=== PATIENT | male | born 1985 | race Caucasian/White ===

== ENCOUNTER 2017-06-09 09:14 | Emergency (ER) | payer OTHER ==
[2017-06-09] MEDS: NS 0.9% 1000 ML* 2,000 ML IV ONE (09:42)
--- NOTE | 2017-06-09 09:43 | ED ---
Lower Extremity - HPI Summary HPI Summary: 32M presents with bilateral cramps today. 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 He has history of sweating that is unchanged. He states he's had this before but has been in the summer when was dehydrated. He denies any injury. Denies any surgery. He denies any recent immobilization. He denies any recent illness. He denies any fevers. He denies any chest pain or shortness of breath. He states the cramps are over his whole body but is worse in his legs. Nothing makes it better or worse. He wonders if he is dehydrated. He states only drinks a little on weekends. only uses prescribed benzos. no recent cold exposure. - History of Current Complaint Chief Complaint: EDGeneral Stated Complaint: DEHYDRATION,CRAMPS,LIGHTHEADED Time Seen by Provider: 06/09/17 09:21 Pain Intensity: 5 - Allergies/Home Medications Allergies/Adverse Reactions: Allergies Allergy/AdvReac Type Severity Reaction Status Date / Time No Known Allergies Allergy Verified 09/15/12 10:32 PMH/Surg Hx/FS Hx/Imm Hx Endocrine/Hematology History: Denies: Hx Anticoagulant Therapy, Hx Diabetes Cardiovascular History: Reports: Hx Hypertension Musculoskeletal History: Reports: Hx Arthritis, Hx Congenital Bone Abnormalities , Hx Osteoporosis, Other Musculoskeletal History - Bone spurs knees - Surgical History Surgery Procedure, Year, and Place: left knee meniscus repair x 2 2003, 2010. right knee meniscus repair x 2 2001, 2007. Left hip pin, 1994 Hx Anesthesia Reactions: No Infectious Disease History: No Infectious Disease History: Denies: Traveled Outside the [place] in Last 30 Days - Family History Known Family History: Positive: Diabetes - Social History Alcohol Use: None Substance Use Type: Reports: None Smoking Status (MU): Current Every Day Smoker Review of Systems Positive: Skin Diaphoresis. Negative: Fever Negative: Chest Pain Negative: Shortness Of Breath Positive: Other - body cramps All Other Systems Reviewed And Are Negative: Yes Physical Exam Triage Information Reviewed: Yes Vital Signs On Initial Exam: Initial Vitals Temp Pulse Resp BP Pulse Ox 97.5 F 89 20 132/67 98 06/09/17 09:17 06/09/17 09:17 06/09/17 09:17 06/09/17 09:17 06/09/17 09:17 Vital Signs Reviewed: Yes Appearance: Positive: Pain Distress Skin: Positive: Warm, Dry, Other - skin diaporhesis Head/Face: Positive: Normal Head/Face Inspection Eyes: Positive: Normal, Conjunctiva Clear Respiratory/Lung Sounds: Positive: Clear to Auscultation, Breath Sounds Present Cardiovascular: Positive: Normal, RRR Abdomen Description: Positive: Nontender, Soft Bowel Sounds: Positive: Present Musculoskeletal: Positive: Other - legs cramps,. Negative: Edema Left, Edema Right Neurological: Positive: Normal Psychiatric: Positive: Normal Diagnostics - Vital Signs Vital Signs Temp Pulse Resp BP Pulse Ox 06/09/17 09:32 84 13 98 06/09/17 09:17 97.5 F 89 20 132/67 98 - Laboratory Result Diagrams: 06/09/17 09:42 06/09/17 09:42 Lab Statement: Any lab studies that have been ordered have been reviewed, and results considered in the medical decision making process. Re-Evaluation - Re-Evaluation First Eval Re-Evaluation Time: 11:47 Change: Improved Comment: muscle cramps resolved after fluids and valium Lower Extremity Course/Dx - Course Course Of Treatment: 32M presents with bilateral cramps today. 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 He has history of sweating that is unchanged. He states he's had this before but has been in the summer when was dehydrated. He denies any injury. Denies any surgery. He denies any recent immobilization. He denies any recent illness. He denies any fevers. He denies any chest pain or shortness of breath. He states the cramps are over his whole body but is worse in his legs. Nothing makes it better or worse. He wonders if he is dehydrated. on exam has legs cramp, appears diaphoretic. labs CR elevated which is were has been. [place] low at 96. Ca high at 10.7. and mg low at 1.8. gave fluids and mag and patient feeling. will discharge with follow up for primary as Cr a little more elevated than normal. patient states has had worst episode than this before so told to keep a journal. patient understand and agrees with plan. - Diagnoses Differential Diagnosis/HQI/PQRI: Positive: Sprain, Strain, Other - muscle spasms Provider Diagnoses: Muscle cramps Discharge - Discharge Plan Condition: Good Disposition: HOME Patient Education Materials: Muscle Cramp (ED) Referrals: Warren Espinoza MD [Primary Care Provider] - Additional Instructions: Take ibuprofen every 6 hours as needed for pain Stay hydrated Take magnesium for next couple days Follow up with primary Return to ED if develop any new or worsening symptoms
[2017-06-09 09:51] LABS: Hematocrit 46 % (42-52); Mean Corpuscular HGB Conc 35 g/dl (31-36); Mean Corpuscular Hemoglobin 33 pg (27-31); Mean Corpuscular Volume 93 fL (80-94); Mean Platelet Volume 10 um3 (7.4-10.4); Platelet Count 221 10^3/ul (150-450); Red Blood Count 4.89 10^6/ul (4.0-5.4); Red Cell Distribution Width 13 % (10.5-15); White Blood Count 7.4 10^3/ul (3.5-10.8)
[2017-06-09 10:06] LABS: EGFR Non-African American 48.6 (>60)
[2017-06-09] MEDS ORDERED: Magnesium Chloride EC TAB* 64 MG PO ONE (10:27)
[2017-06-09] MEDS ORDERED: Thiamine IV* 100 MG, Folic Acid IV* 1 MG, Multiple Vitamin IV ADULT* 10 ML in NS 0.9% 1... IV ONE (10:32)
[2017-06-09] MEDS ORDERED: Magnesium Oxide TAB* 400 MG PO ONE (10:37)
[2017-06-09] MEDS ORDERED: Diazepam TAB(*) 5 MG PO ONE (10:42)
[2017-06-09 10:50] LABS: ABS Basophils 0.1 10^3/ul (0-0.2); ABS Eosinophils 0.1 10^3/ul (0-0.6); ABS Monocytes 0.5 10^3/ul (0-0.8); ABS Neutrophils 4.7 10^3/ul (1.5-7.7); ABS Nucleated RBC 0 10^3/ul; Eosinophil % 1.4 % (0-6); Lymphocyte % 27.1 % (25-47); Nucleated Red Blood Cells % 0.1
[2017-06-09 11:57] VITALS: BP 134/60
== END 2017-06-09 11:57 | disposition home or self-care (01) ==
LOC: ED 09:14
DX: R25.2 Cramp and spasm (principal); F17.200 Nicotine dependence, unspecified, uncomplicated
CPT/HCPCS: 36415; 80053; 82550; 83605; 83735; 84443; 85025; 86141; 87502; 96360; 99282; A9270-GY; J3411

== ENCOUNTER 2017-06-18 09:40 | Emergency (ER) | payer OTHER ==
[2017-06-18 09:48] VITALS: BP 135/82
--- NOTE | 2017-06-18 11:25 | RAD ---
Indication: Right shoulder pain. 4 views of the right shoulder demonstrates AC joint arthritis. There is no fracture or dislocation. No other bone or joint abnormality is noted. IMPRESSION: Mild AC joint arthritis without fracture.
[2017-06-18] MEDS ORDERED: Ketorolac INJ* 60 MG/2 ML VIAL IM ONE (11:55)
[2017-06-18] MEDS ORDERED: HYDROcodone/ACETAMIN 5-325 MG* 1 TAB PO ONE (12:54)
--- NOTE | 2017-06-18 16:50 | ED ---
Upper Extremity Pain - HPI Summary HPI Summary: Patient presents to the ED with chief complaint of right shoulder pain after falling and landing directly on it. He states he has an issue with his shoulder at baseline, but has never had a rotator cuff injury. He is unable to abduct the arm past 90. He has discrete pain at a 8 out of 10 directly located over the coracoclavicular joint. He is able to internally rotate his arm without pain. He denies any pain in the posterior shoulder or anterior shoulder. Pain is exacerbated by movement and relieved only somewhat with rest. He denies any numbness, tingling, color or temperature changes to the joint or to the ipsilateral arm. Pulses +2 and intact bilaterally. - History of Current Complaint Chief Complaint: EDExtremityUpper Stated Complaint: RT SHOULDER,FALL Time Seen by Provider: 06/18/17 12:25 Hx Obtained From: Patient Mechanism Of Injury: Blunt Trauma Onset/Duration: Started Hours Ago Timing: Constant Severity Initially: Moderate Severity Currently: Moderate Pain Location: Shoulder Character: Aching Aggravating Factor(s): Movement, Lifting, Flexion, Extension Alleviating Factor(s): Rest, Ice Associated Signs & Symptoms: Positive: Negative Related History: Dominant Hand Right - Risk Factors Non-Orthopedic Risk Factor: Negative DVT Risk Factors: Negative Septic Arthritis Risk Factor: Negative Compartment Syndrome Risk Factors: Pain - Allergies/Home Medications Allergies/Adverse Reactions: Allergies Allergy/AdvReac Type Severity Reaction Status Date / Time No Known Allergies Allergy Verified 09/15/12 10:32 PMH/Surg Hx/FS Hx/Imm Hx Previously Healthy: Yes Endocrine/Hematology History: Denies: Hx Anticoagulant Therapy, Hx Diabetes Cardiovascular History: Reports: Hx Hypertension Musculoskeletal History: Reports: Hx Arthritis, Hx Congenital Bone Abnormalities , Hx Osteoporosis, Other Musculoskeletal History - Bone spurs knees - Surgical History Surgery Procedure, Year, and Place: left knee meniscus repair x 2 2003, 2009. right knee meniscus repair x 2 2001, 2006. Left hip pin, 1994 Hx Anesthesia Reactions: No - Immunization History Hx Pertussis Vaccination: No Immunizations Up to Date: Unable to Obtain/Confirm Infectious Disease History: No Infectious Disease History: Denies: Traveled Outside the [place] in Last 30 Days - Family History Known Family History: Positive: Diabetes - Social History Occupation: Employed Full-time Lives: With Family Alcohol Use: None Hx Substance Use: No Substance Use Type: Reports: None Smoking Status (MU): Current Every Day Smoker Review of Systems Constitutional: Negative Negative: Fever, Chills, Skin Diaphoresis Eyes: Negative Cardiovascular: Negative Respiratory: Negative Negative: Abdominal Pain, Vomiting, Diarrhea Genitourinary: Negative Positive: no symptoms reported, see HPI Positive: Arthralgia, Myalgia Negative: Weakness, Paresthesia, Numbness, Syncope, Slurred Speech Psychological: Normal All Other Systems Reviewed And Are Negative: Yes Physical Exam Triage Information Reviewed: Yes Vital Signs On Initial Exam: Initial Vitals Temp Pulse Resp BP Pulse Ox 95.9 F 78 20 135/82 98 06/18/17 09:45 06/18/17 09:45 06/18/17 09:45 06/18/17 09:45 06/18/17 09:45 Vital Signs Reviewed: Yes Appearance: Positive: Well-Appearing, Well-Nourished Skin: Positive: Warm, Skin Color Reflects Adequate Perfusion Head/Face: Positive: Normal Head/Face Inspection Eyes: Positive: EOMI, DEANNE, Conjunctiva Clear Neck: Positive: Supple, No Lymphadenopathy Respiratory/Lung Sounds: Positive: Clear to Auscultation, Breath Sounds Present Cardiovascular: Positive: Normal, RRR, Pulses are Symmetrical in both Upper and Lower Extremities Musculoskeletal: Positive: Pain @ - Right shoulder over before meals joint Neurological: Positive: Facial Symmetry Psychiatric: Positive: Normal Diagnostics - Vital Signs Vital Signs Temp Pulse Resp BP Pulse Ox 06/18/17 12:50 98.4 F 77 16 135/82 100 06/18/17 09:45 95.9 F 78 20 135/82 98 - Laboratory Lab Statement: Any lab studies that have been ordered have been reviewed, and results considered in the medical decision making process. Course/Dx - Course Course Of Treatment: During the course of treatment, the patient is evaluated for right shoulder pain, versus rotatory cuff injury after falling directly onto the shoulder. X-ray obtained which does not show any acute injury. Before meals joint arthritis as shown but no evidence of before meals joint separation or other acute injury. I have offered a sling and encouraged him to use it, however he declines this and refuses several times. He declines pain medications, but changes his mind. He is given tramadol as a prescription and hydrocodone in the ED. He is okay for discharge at this time. - Diagnoses Provider Diagnoses: Shoulder pain Discharge - Discharge Plan Condition: Stable Disposition: HOME Prescriptions: traMADol TAB* [Ultram*] 50 mg PO Q8H PRN #12 tab MDD 3 PRN Reason: Pain Forms: *Work Release Referrals: Jayy Marti DO [Primary Care Provider] - Additional Instructions: Ice and heat intermittently to the area Continue with your diclofenac and gabapentin medications For any worsening symptoms, follow up with Dr. Prince
== END 2017-06-18 13:29 | disposition home or self-care (01) ==
LOC: ED 09:40
DX: M25.511 Pain in right shoulder (principal); M79.1 Myalgia; F17.210 Nicotine dependence, cigarettes, uncomplicated
CPT/HCPCS: 96372; 99282; J1885

== ENCOUNTER 2017-08-19 06:51 | Emergency (ER) | payer BC, OTHER ==
[2017-08-19 07:33] VITALS: BP 130/74
--- NOTE | 2017-08-19 07:33 | ED ---
Damien Tarango Angela, scribed for Sukhdeep Woodard MD on 08/19/17 at 0715 . Throat Pain/Nasal Congestion - HPI Summary HPI Summary: This pt is a 32 y/o male presenting to [facility] c/o right lower jaw pain since 04: 00 today s/p tooth extraction 6 days ago. Pt reports he went to [facility] 6 days ago, on 08/03/17, to get his molar extracted. He states he was given amoxicillin after his dental surgery. At approximately 04:00, pt began having right lower jaw pain. He works for [employer], and while lifting a box this morning he felt something come out from his surgical site, described as "gel." Pt tried calling [facility] with no response. Pt is a current smoker. PMHx includes HTN, osteoarthritis. - History of Current Complaint Chief Complaint: EDDentalPain Time Seen by Provider: 08/19/17 07:07 Hx Obtained From: Patient Onset/Duration: Lasting Days, Still Present Severity: Severe Associated Signs And Symptoms: Negative: Dysphagia, FB Sensation, Drooling, Wheezing, Hoarseness, Nasal Discharge Cough: None Related History: Other (Noted In Comments) - s/p tooth extraction on 08/13/17. - Allergies/Home Medications Allergies/Adverse Reactions: Allergies Allergy/AdvReac Type Severity Reaction Status Date / Time No Known Allergies Allergy Verified 09/15/12 10:32 PMH/Surg Hx/FS Hx/Imm Hx Endocrine/Hematology History: Denies: Hx Anticoagulant Therapy, Hx Diabetes Cardiovascular History: Reports: Hx Hypertension Musculoskeletal History: Reports: Hx Arthritis, Hx Congenital Bone Abnormalities , Hx Osteoporosis, Other Musculoskeletal History - Bone spurs knees - Surgical History Surgery Procedure, Year, and Place: left knee meniscus repair x 2 2003, 2010. right knee meniscus repair x 2 2001, 2006. Left hip pin, 1994 Hx Anesthesia Reactions: No Infectious Disease History: No Infectious Disease History: Denies: Traveled Outside the [place] in Last 30 Days - Family History Known Family History: Positive: Diabetes - Social History Alcohol Use: None Hx Substance Use: No Substance Use Type: Reports: None Smoking Status (MU): Current Every Day Smoker Review of Systems Negative: Fever, Chills ENT: Other - right lower jaw pain Cardiovascular: Negative Respiratory: Negative Gastrointestinal: Negative Genitourinary: Negative All Other Systems Reviewed And Are Negative: Yes Physical Exam - Summary Physical Exam Summary: Appearance: Well appearing, no pain distress Skin: warm, dry, reflects adequate perfusion Head/face: normal Eyes: EOMI, DEANNE ENT: first molar, right lower, with extraction site with clot and packing. Sutures are in place. Neck: supple, non-tender Respiratory: CTA, breath sounds present Cardiovascular: RRR, pulses symmetrical Abdomen: non-tender, soft Bowel: present Musculoskeletal: normal, strength/ROM intact Neuro: normal, sensory motor intact, A&Ox3 Triage Information Reviewed: Yes Vital Signs On Initial Exam: Initial Vitals Temp Pulse Resp BP Pulse Ox 97.6 F 84 18 135/80 96 08/19/17 06:53 08/19/17 06:53 08/19/17 06:53 08/19/17 06:53 08/19/17 06:53 Vital Signs Reviewed: Yes Procedures - Procedure Summary Procedure Summary: Dental block performed for pain control: An inferior alveolar nerve block was performed by intraoral approach on the right lower jaw. A total of 1.5 cc total mixed 1% lidocaine and 0.5% bupivacaine was injected. This provided adequate anesthesia. He tolerated this well without complications. The socket of the extraction of the right lower first molar was irrigated with saline through a 20-gauge angiocatheter. Food particles and a light rodney-brown discharge was irrigated out. It was irrigated clean. The socket was then packed with Surgicel. He tolerated this well without complaints. Diagnostics - Vital Signs Vital Signs Temp Pulse Resp BP Pulse Ox 08/19/17 06:53 97.6 F 84 18 135/80 96 - Laboratory Lab Statement: Any lab studies that have been ordered have been reviewed, and results considered in the medical decision making process. EENT Course/Dx - Course Course Of Treatment: Patient with dry socket after extraction of right lower first molar. Socket was irrigated out and packed with Surgicel after dental block. He is guarding on antibiotic. Chlorhexidine mouthwash and naproxen 500 mg was prescribed. He is encouraged to follow up with [facility]. - Diagnoses Provider Diagnoses: Alveolar osteitis Discharge - Sign-Out/Discharge Documenting (check all that apply): Discharge/Admit/Transfer - discharge home - Discharge Plan Condition: Good Disposition: HOME Prescriptions: Chlorhexidine MOUTHWASH 0.12%* [Peridex Mouth Wash 0.12%*] 15 ml MT BID #1 btl Naproxen [Naproxen 500 mg tab] 500 mg PO BID PRN #10 tablet.dr [id number] Reason: Pain Patient Education Materials: Dry Socket (ED) Forms: *Work Release Referrals: Jayy Marti DO [Primary Care Provider] - Additional Instructions: Call [facility] first thing this morning for an appt. Take your amoxicillin as prescribed. Return with fever, vomiting, swelling, worse or other concerns. - Billing Disposition and Condition Condition: GOOD Disposition: HOME The documentation as recorded by the Damien gordon Angela accurately reflects the service I personally performed and the decisions made by me, Sukhdeep Woodard MD.
== END 2017-08-19 07:32 | disposition home or self-care (01) ==
LOC: ED 06:51
DX: M27.3 Alveolitis of jaws (principal); I10 Essential (primary) hypertension; F17.200 Nicotine dependence, unspecified, uncomplicated
CPT/HCPCS: 99281

== ENCOUNTER 2017-09-09 08:02 | Emergency (ER) | payer BC ==
[2017-09-09] MEDS ORDERED: Thiamine IV* 100 MG, Folic Acid IV* 1 MG, Multiple Vitamin IV ADULT* 10 ML in NS 0.9% 1... IV ONE (08:21)
[2017-09-09 08:49] LABS: Hematocrit 44 % (42-52); Hemoglobin 15.9 g/dl (14.0-18.0); Mean Corpuscular HGB Conc 36 g/dl (31-36); Mean Corpuscular Hemoglobin 33 pg (27-31); Mean Corpuscular Volume 93 fL (80-94); Platelet Count 222 10^3/ul (150-450); Red Blood Count 4.79 10^6/ul (4.0-5.4); Red Cell Distribution Width 12 % (10.5-15); White Blood Count 7.6 10^3/ul (3.5-10.8)
[2017-09-09] MEDS ORDERED: NS 0.9% 1000 ML* 1,000 ML IV ONE (09:00)
[2017-09-09 09:05] LABS: EGFR Non-African American 34.1 (>60)
[2017-09-09 09:22] LABS: ABS Basophils 0 10^3/ul (0-0.2); ABS Eosinophils 0.1 10^3/ul (0-0.6); ABS Lymphocytes 1.4 10^3/ul (1.0-4.8); ABS Monocytes 0.6 10^3/ul (0-0.8); ABS Neutrophils 5.4 10^3/ul (1.5-7.7); ABS Nucleated RBC 0 10^3/ul; Eosinophil % 1.3 % (0-6); Nucleated Red Blood Cells % 0.2
[2017-09-09] MEDS ORDERED: Dextrose 50% Syringe 50 ML* 25 GM/50 ML SYRINGE IV PUSH ONE (09:28)
[2017-09-09] MEDS ORDERED: Dextrose 50% Syringe 50 ML* 25 GM/50 ML SYRINGE ONE (09:29)
--- NOTE | 2017-09-09 10:04 | ED ---
Complex/Multi-Sys Presentation - HPI Summary HPI Summary: 32 male presents with bilateral lower extremity muscle spasms. He states he has muscle spasms in his whole body but in his legs is worst. He states he has history such. He has history of dehydration and excess sweating. He denies any nausea vomiting. He denies any recent illness. He denies any chest pain shortness breath. No abdominal pain. He states he has history of low mg and Ca so he takes supplements. no history of low blood sugar or diabetes. He states started after he was lifting stuff at work. He drank two liters of fluids. He states normally gets IV fluids and it helps resolve symptoms. <Nelli Rodrigez - Last Filed: 09/09/17 11:21> <Kinjal Allen - Last Filed: 09/11/17 11:52> - History Of Current Complaint Chief Complaint: EDExtremityLower Time Seen by Provider: 09/09/17 08:21 - Allergies/Home Medications Allergies/Adverse Reactions: Allergies Allergy/AdvReac Type Severity Reaction Status Date / Time No Known Allergies Allergy Verified 09/09/17 08:11 Home Medications: Home Medications Diclofenac Sodium EC TAB* [Voltaren EC TAB*] 75 mg PO BID 09/09/17 [History Confirmed 09/09/17] Gabapentin CAP(*) [Neurontin 300 CAP(*)] 300 mg PO BID 09/09/17 [History Confirmed 09/09/17] Glycopyrrolate TAB(NF) [Robinul TAB(NF)] 2 mg PO BID 09/09/17 [History Confirmed 09/09/17] HYDROcodone/ACETAMIN 5-325 MG* [[place] 5-325 TAB*] 1 tab PO BID 09/09/17 [ History Confirmed 09/09/17] Lisinopril TAB* [Prinivil TAB*] 40 mg PO DAILY 09/09/17 [History Confirmed 09/09] PMH/Surg Hx/FS Hx/Imm Hx Endocrine/Hematology History: Denies: Hx Anticoagulant Therapy, Hx Diabetes Cardiovascular History: Reports: Hx Hypertension Musculoskeletal History: Reports: Hx Arthritis, Hx Congenital Bone Abnormalities , Hx Osteoporosis, Other Musculoskeletal History - Bone spurs knees - Surgical History Surgery Procedure, Year, and Place: left knee meniscus repair x 2 2003, 2009. right knee meniscus repair x 2 2001, 2006. Left hip pin, 1994 Hx Anesthesia Reactions: No - Immunization History Date of Tetanus Vaccine: within 10 years Infectious Disease History: No Infectious Disease History: Denies: Traveled Outside the [place] in Last 30 Days - Family History Known Family History: Positive: Diabetes - Social History Alcohol Use: Occasionally Hx Substance Use: No Substance Use Type: Reports: None Smoking Status (MU): Light Every Day Tobacco Smoker <Nelli Rodrigez - Last Filed: 09/09/17 11:21> Review of Systems Negative: Fever Negative: Chest Pain Negative: Shortness Of Breath Positive: Other - muscle spasms All Other Systems Reviewed And Are Negative: Yes <Nelli Rodrigez - Last Filed: 09/09/17 11:21> Physical Exam Triage Information Reviewed: Yes Vital Signs On Initial Exam: Initial Vitals Temp Pulse Resp BP Pulse Ox 97.2 F 90 20 113/60 100 09/09/17 08:06 09/09/17 08:06 09/09/17 08:06 09/09/17 08:06 09/09/17 08:06 Vital Signs Reviewed: Yes Appearance: Positive: Well-Appearing Skin: Positive: Warm, Dry Head/Face: Positive: Normal Head/Face Inspection Eyes: Positive: Normal, Conjunctiva Clear ENT: Positive: Pharynx normal Respiratory/Lung Sounds: Positive: Clear to Auscultation, Breath Sounds Present Cardiovascular: Positive: Normal, RRR Abdomen Description: Positive: Nontender, Soft Bowel Sounds: Positive: Present Musculoskeletal: Positive: Strength/ROM Intact - lower extremities, Other - muscles spams noted lower legs, good pulses Neurological: Positive: Normal Psychiatric: Positive: Normal <Nelli Rodrigez - Last Filed: 09/09/17 11:21> Vital Signs On Initial Exam: Initial Vitals Temp Pulse Resp BP Pulse Ox 97.2 F 90 20 113/60 100 09/09/17 08:06 09/09/17 08:06 09/09/17 08:06 09/09/17 08:06 09/09/17 08:06 <Kinjal Allen - Last Filed: 09/11/17 11:52> Diagnostics - Vital Signs Vital Signs Temp Pulse Resp BP Pulse Ox 09/09/17 09:51 65 18 121/60 96 09/09/17 09:21 72 19 109/56 96 09/09/17 09:00 77 15 97 09/09/17 08:57 77 15 101/57 96 09/09/17 08:21 80 116/64 97 09/09/17 08:06 97.2 F 90 20 113/60 100 - Laboratory Lab Results: Lab Results 09/09/17 09/09/17 Range/Units 08:29 08:29 WBC 7.6 (3.5-10.8) 10^3/ul RBC 4.79 (4.0-5.4) 10^6/ul Hgb 15.9 (14.0-18.0) g/dl Hct 44 (42-52) % MCV 93 (80-94) fL MCH 33 H (27-31) pg MCHC 36 (31-36) g/dl RDW 12 (10.5-15) % Plt Count 222 (150-450) 10^3/ul MPV 9.0 (7.4-10.4) um3 Neut % (Auto) 71.6 (38-83) % Lymph % (Auto) 19.0 L (25-47) % [place] % (Auto) 7.5 H (0-7) % Eos % (Auto) 1.3 (0-6) % Baso % (Auto) 0.6 (0-2) % Absolute Neuts (auto) 5.4 (1.5-7.7) 10^3/ul Absolute Lymphs (auto) 1.4 (1.0-4.8) 10^3/ul Absolute Monos (auto) 0.6 (0-0.8) 10^3/ul Absolute Eos (auto) 0.1 (0-0.6) 10^3/ul Absolute Basos (auto) 0 (0-0.2) 10^3/ul Absolute Nucleated RBC 0 10^3/ul Nucleated RBC % 0.2 Sodium 131 L (139-145) mmol/L Potassium 3.7 (3.5-5.0) mmol/L Chloride 92 L (101-111) mmol/L Carbon Dioxide 26 (22-32) mmol/L Anion Gap 13 H (2-11) mmol/L BUN 18 (6-24) mg/dL Creatinine 2.23 H (0.67-1.17) mg/dL Est GFR ( Amer) 43.9 (>60) Est GFR (Non-Af Amer) 34.1 (>60) BUN/Creatinine Ratio 8.1 (8-20) Glucose 36 L* (70-100) mg/dL Calcium 10.8 H (8.6-10.3) mg/dL Magnesium 2.8 H (1.9-2.7) mg/dL Total Bilirubin 0.90 (0.2-1.0) mg/dL AST 34 (13-39) U/L ALT 32 (7-52) U/L Alkaline Phosphatase 53 (34-104) U/L Total Creatine Kinase 252 H (10-223) U/L C-React Prot High Sens 2.61 mg/L Total Protein 8.4 (6.4-8.9) g/dL Albumin 5.3 H (3.2-5.2) g/dL Globulin 3.1 (2-4) g/dL Albumin/Globulin Ratio 1.7 (1-3) TSH 5.46 (0.34-5.60) mcIU/mL Result Diagrams: 09/09/17 08:29 09/09/17 08:29 Lab Statement: Any lab studies that have been ordered have been reviewed, and results considered in the medical decision making process. <Nelli Rodrigez - Last Filed: 09/09/17 11:21> - Vital Signs Vital Signs Temp Pulse Resp BP Pulse Ox 09/09/17 11:07 98.0 F 65 18 115/72 100 09/09/17 11:00 115/72 09/09/17 10:52 63 18 133/70 100 09/09/17 10:22 65 16 134/68 97 09/09/17 10:00 66 15 99 09/09/17 09:51 65 18 121/60 96 09/09/17 09:21 72 19 109/56 96 09/09/17 09:00 77 15 97 09/09/17 08:57 77 15 101/57 96 09/09/17 08:21 80 116/64 97 09/09/17 08:06 97.2 F 90 20 113/60 100 - Laboratory Lab Results: Lab Results 09/09/17 09/09/17 09/09/17 Range/Units 08:29 08:29 10:00 WBC 7.6 (3.5-10.8) 10^3/ul RBC 4.79 (4.0-5.4) 10^6/ul Hgb 15.9 (14.0-18.0) g/dl Hct 44 (42-52) % MCV 93 (80-94) fL MCH 33 H (27-31) pg MCHC 36 (31-36) g/dl RDW 12 (10.5-15) % Plt Count 222 (150-450) 10^3/ul MPV 9.0 (7.4-10.4) um3 Neut % (Auto) 71.6 (38-83) % Lymph % (Auto) 19.0 L (25-47) % [place] % (Auto) 7.5 H (0-7) % Eos % (Auto) 1.3 (0-6) % Baso % (Auto) 0.6 (0-2) % Absolute Neuts (auto) 5.4 (1.5-7.7) 10^3/ul Absolute Lymphs (auto) 1.4 (1.0-4.8) 10^3/ul Absolute Monos (auto) 0.6 (0-0.8) 10^3/ul Absolute Eos (auto) 0.1 (0-0.6) 10^3/ul Absolute Basos (auto) 0 (0-0.2) 10^3/ul Absolute Nucleated RBC 0 10^3/ul Nucleated RBC % 0.2 Sodium 131 L (139-145) mmol/L Potassium 3.7 (3.5-5.0) mmol/L Chloride 92 L (101-111) mmol/L Carbon Dioxide 26 (22-32) mmol/L Anion Gap 13 H (2-11) mmol/L BUN 18 (6-24) mg/dL Creatinine 2.23 H (0.67-1.17) mg/dL Est GFR ( Amer) 43.9 (>60) Est GFR (Non-Af Amer) 34.1 (>60) BUN/Creatinine Ratio 8.1 (8-20) Glucose 36 L* (70-100) mg/dL POC Glucose (mg/dL) 70 (70-100) mg/dL Calcium 10.8 H (8.6-10.3) mg/dL Magnesium 2.8 H (1.9-2.7) mg/dL Total Bilirubin 0.90 (0.2-1.0) mg/dL AST 34 (13-39) U/L ALT 32 (7-52) U/L Alkaline Phosphatase 53 (34-104) U/L Total Creatine Kinase 252 H (10-223) U/L C-React Prot High Sens 2.61 mg/L Total Protein 8.4 (6.4-8.9) g/dL Albumin 5.3 H (3.2-5.2) g/dL Globulin 3.1 (2-4) g/dL Albumin/Globulin Ratio 1.7 (1-3) TSH 5.46 (0.34-5.60) mcIU/mL Result Diagrams: 09/09/17 08:29 09/09/17 08:29 Lab Statement: Any lab studies that have been ordered have been reviewed, and results considered in the medical decision making process. <Kinjal Allen - Last Filed: 09/11/17 11:52> Re-Evaluation - Re-Evaluation First Eval Re-Evaluation Time: 10:43 Change: Improved Comment: feeling better after fluids Second Eval Re-Evaluation Time: 10:51 Comment: wants to go home, advised against such but patient is insistent <Nelli Rodrigez - Last Filed: 09/09/17 11:21> Complex Multi-Symp Course/Dx Course Of Treatment: 32 male presents with bilateral lower extremity muscle spasms. He states he has muscle spasms in his whole body but in his legs is worst. He states he has history such. He has history of dehydration and excess sweating. He denies any nausea vomiting. He denies any recent illness. He denies any chest pain shortness breath. No abdominal pain. He states he has history of low mg and Ca so he takes supplements. no history of low blood sugar or diabetes. He states started after he was lifting stuff at work. He drank two liters of fluids. He states normally gets IV fluids and it helps resolve symptoms. on exam has muscle spasms of lower legs. wbc normal. sodium 131. glucose so gave dextrose and repeat glucose 70. feeling better after fluids. Cr 2.23 advised that needs to be admitted and patient states has issues with kidneys and will not be admitted. <Nelli Rodrigez - Last Filed: 09/09/17 11:21> <Kinjal Allen - Last Filed: 09/11/17 11:52> - Diagnoses Provider Diagnoses: Hypoglycemia, Creatinine elevation, Muscle spasm Discharge - Sign-Out/Discharge Documenting (check all that apply): Discharge/Admit/Transfer - Billing Disposition and Condition Condition: STABLE Disposition: HOME <Nelli Rodrigez - Last Filed: 09/09/17 11:21> - Billing Disposition and Condition Condition: STABLE Disposition: HOME <Kinjal Allen - Last Filed: 09/11/17 11:52> - Discharge Plan Condition: Stable Disposition: HOME Patient Education Materials: Non-diabetic Hypoglycemia (ED) Referrals: Lamine Rao MD [Medical Doctor] - Jayy Marti DO [Primary Care Provider] - Additional Instructions: Follow up with endocrinology or primary about low blood sugar Eat small snacks throughout day Drink plenty of fluids Return to ED if develop any new or worsening symptoms Attestation Statement User Type: Provider - I was available for consult. This patient was seen by the [facility]. The patient was not presented to, seen by, or examined by me. -Harley <Kinjal Allen - Last Filed: 09/11/17 11:52>
[2017-09-09 11:03] VITALS: BP 115/72
== END 2017-09-09 11:07 | disposition home or self-care (01) ==
LOC: ED 08:02
DX: E16.2 Hypoglycemia, unspecified (principal); R79.89 Other specified abnormal findings of blood chemistry; M62.838 Other muscle spasm; I10 Essential (primary) hypertension; M19.90 Unspecified osteoarthritis, unspecified site; F17.200 Nicotine dependence, unspecified, uncomplicated
CPT/HCPCS: 36415; 80053; 82550; 83735; 84443; 85025; 86141; 96361; 96365; 96375; 99283; J3411

== ENCOUNTER 2017-12-01 07:23 | Emergency (ER) | payer BC ==
--- NOTE | 2017-12-01 08:02 | ED ---
Complex/Multi-Sys Presentation - HPI Summary HPI Summary: This is scribe Markie Hernandez documenting for Iain Kyle M.D. Patient is a 32 y/o M w/ c/o muscle cramping in left foot up to quads, back, and shoulders onsetting one hour ago. He specifically states he is experiencing cramps and not muscle spasms. Cramps are constant since onset. On triage, associated pain is 5/10 and nothing is noted to aggravate/alleviate Sx. Patient states he has Hx of these Sx since childhood. He states he has previously gone to Dr. Rao's office and was found not to be diabetic. He states he checks his blood glucose level himself and it is within normal range. 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 Patient started working at around 0200 today and states he was sweating a lot. He states he normally consumes magnesium, potassium, body armor drink, and a banana in the morning before work. However, he received short notice of his scheduling for work today and was not able to take these items. Before coming to ED he reports having a green electrolyte bag. He took two Valiums an hour ago as well. Sx relief from Valium is denied at present. Patient notes PSHx of left knee replacement in the room. He reports that he is on BP meds, 200 mg metoprolol and 30 mg lisinopril. In the room, vitals are pulse 93, 100 O2 sat, and BP 93/77. Patient claims he is normally 116 systolic. Home medications and allergies reviewed. I, Dr. Kyle, personally performed the services described in this documentation as scribed in my presence and it is both accurate and complete. - History Of Current Complaint Chief Complaint: EDGeneral Time Seen by Provider: 12/01/17 07:30 Hx Obtained From: Patient Onset/Duration: Sudden Onset, Lasting Hours - onset one hour ago, Still Present Timing: Constant, Days - onset one hour ago Severity Currently: Moderate - on triage, pain 5/10 Location: Pain At: - cramps at left foot to quads, back and shoulders Associated Signs And Symptoms: Positive: Diaphoresis - Allergies/Home Medications Allergies/Adverse Reactions: Allergies Allergy/AdvReac Type Severity Reaction Status Date / Time No Known Allergies Allergy Verified 12/01/17 07:32 Home Medications: Home Medications Diazepam TAB(*) [Valium TAB(*)] 10 mg PO Q8H PRN 12/01/17 [History Confirmed ] PMH/Surg Hx/FS Hx/Imm Hx Endocrine/Hematology History: Denies: Hx Anticoagulant Therapy, Hx Diabetes Cardiovascular History: Reports: Hx Hypertension Musculoskeletal History: Reports: Hx Arthritis, Hx Congenital Bone Abnormalities , Hx Osteoporosis, Other Musculoskeletal History - Bone spurs knees - Surgical History Surgery Procedure, Year, and Place: left knee meniscus repair x 2 2003, 2009. right knee meniscus repair x 2 2001, 2006. Left hip pin, 1994 Hx Anesthesia Reactions: No - Immunization History Date of Tetanus Vaccine: within 10 years Infectious Disease History: No Infectious Disease History: Denies: Traveled Outside the [place] in Last 30 Days - Family History Known Family History: Positive: Diabetes - Social History Alcohol Use: Occasionally Hx Substance Use: No Substance Use Type: Reports: None Smoking Status (MU): Light Every Day Tobacco Smoker Review of Systems Positive: Skin Diaphoresis Positive: Other - muscle cramps at left foot to quads, shoulders, and back All Other Systems Reviewed And Are Negative: Yes Physical Exam - Summary Physical Exam Summary: Appearance: The patient is well-nourished in no acute distress and in no acute pain. Skin: The skin is warm and dry and skin color reflects adequate perfusion. HEENT: The head is normocephalic and atraumatic. The pupils are equal and reactive. The conjunctivae are clear and without drainage. Nares are patent and without drainage. Mouth reveals moist mucous membranes and the throat is without erythema and exudate. The external ears are intact. The ear canals are patent and without drainage. The tympanic membranes are intact. Neck: The neck is supple with full range of motion and non-tender. There are no carotid bruits. There is no neck vein distension. Respiratory: Chest is non-tender. Lungs are clear to auscultation and breath sounds are symmetrical and equal. Cardiovascular: Heart is regular rate and rhythm. There is no murmur or rub auscultated. There is no peripheral edema and pulses are symmetrical and equal. Abdomen: The abdomen is soft and non-tender. There are normal bowel sounds heard in all four quadrants and there is no organomegaly palpated. Musculoskeletal: There is no back tenderness noted. Extremities are non-tender with full range of motion. There is good capillary refill. There is no peripheral edema or calf tenderness elicited. Neurological: Patient is alert and oriented to person, place and time. The patient has symmetrical motor strength in all four extremities. Cranial nerves are grossly intact. Deep tendon reflexes are symmetrical and equal in all four extremities. Psychiatric: The patient has an appropriate affect and does not exhibit any anxiety or depression. Triage Information Reviewed: Yes Vital Signs On Initial Exam: Initial Vitals Temp Pulse Resp BP Pulse Ox 97.7 F 98 20 89/55 99 12/01/17 07:25 12/01/17 07:25 12/01/17 07:25 12/01/17 07:25 12/01/17 07:25 Vital Signs Reviewed: Yes Diagnostics - Vital Signs Vital Signs Temp Pulse Resp BP Pulse Ox 12/01/17 07:25 97.7 F 98 20 89/55 99 - Laboratory Result Diagrams: 12/01/17 08:13 12/01/17 08:13 Lab Statement: Any lab studies that have been ordered have been reviewed, and results considered in the medical decision making process. Re-Evaluation - Re-Evaluation First Eval Re-Evaluation Time: 09:35 Change: Improved Comment: Patient reports feeling better. He will be discharged to home and follow up with PCP in 2-3 days. He is agreeable with this plan. Complex Multi-Symp Course/Dx Course Of Treatment: Mr. Catalan presented with the complaint that when he works in a heated environment he gets excessive sweating and ends up with muscle cramping. He states that he usually gets better with IV fluids. He was given IV fluids here and did improve and was noted that his electrolytes were within normal limits. - Diagnoses Provider Diagnoses: Dehydration Discharge - Sign-Out/Discharge Documenting (check all that apply): Patient Departure - discharge - Discharge Plan Condition: Stable Disposition: HOME Patient Education Materials: Dehydration (ED) Referrals: Jayy Marti DO [Primary Care Provider] - 2 Days Additional Instructions: Follow up with primary care physician in 2-3 days. Return to ED for any new or worsening symptoms. - Billing Disposition and Condition Condition: STABLE Disposition: Home
[2017-12-01] MEDS ORDERED: NS 0.9% 1000 ML* 1,000 ML IV ONE (08:07)
[2017-12-01 08:33] LABS: ABS Basophils 0 10^3/ul (0-0.2); ABS Eosinophils 0 10^3/ul (0-0.6); ABS Lymphocytes 1.4 10^3/ul (1.0-4.8); ABS Monocytes 0.8 10^3/ul (0-0.8); ABS Neutrophils 5.7 10^3/ul (1.5-7.7); ABS Nucleated RBC 0 10^3/ul; Eosinophil % 0.6 % (0-6); Hematocrit 42 % (42-52); Hemoglobin 15.1 g/dl (14.0-18.0); Lymphocyte % 17.3 % (25-47); Mean Corpuscular HGB Conc 36 g/dl (31-36); Mean Corpuscular Hemoglobin 34 pg (27-31); Mean Corpuscular Volume 93 fL (80-94); Mean Platelet Volume 9.3 um3 (7.4-10.4); Nucleated Red Blood Cells % 0; Platelet Count 184 10^3/ul (150-450); Red Cell Distribution Width 13 % (10.5-15)
[2017-12-01 08:44] LABS: EGFR Non-African American 42.3 (>60)
[2017-12-01 10:08] VITALS: BP 116/67
== END 2017-12-01 10:07 | disposition home or self-care (01) ==
LOC: ED 07:23
DX: E86.0 Dehydration (principal); R25.2 Cramp and spasm; R61 Generalized hyperhidrosis; F17.200 Nicotine dependence, unspecified, uncomplicated
CPT/HCPCS: 36415; 80053; 83735; 85025; 86703; 96360; 99283

== ENCOUNTER 2018-01-18 03:16 | Emergency (ER) | payer BC ==
[2018-01-18] MEDS ORDERED: Acetaminophen TAB* 325 MG PO ONE (06:29)
--- NOTE | 2018-01-18 06:39 | ED ---
Upper Extremity Pain - HPI Summary HPI Summary: [id number] patient presents with a left elbow injury which happened yesterday afternoon. Reports he was fell from a chair and landed on his left elbow onto a concrete floor. He has had pain, redness and swelling since. He has tried ice and ibuprofen with minimal relief. He denies numbness tingling or weakness but has pain with moving his forearm and elbow. Denies pain in his shoulder and neck and head. No other injuries as a result of this fall. - History of Current Complaint Chief Complaint: EDExtremityUpper Stated Complaint: LEFT ELBOW INJURY Time Seen by Provider: 01/18/18 05:54 Hx Obtained From: Patient - Allergies/Home Medications Allergies/Adverse Reactions: Allergies Allergy/AdvReac Type Severity Reaction Status Date / Time No Known Allergies Allergy Verified 12/01/17 07:32 PMH/Surg Hx/FS Hx/Imm Hx Endocrine/Hematology History: Denies: Hx Anticoagulant Therapy, Hx Diabetes Cardiovascular History: Reports: Hx Hypertension Musculoskeletal History: Reports: Hx Arthritis, Hx Congenital Bone Abnormalities , Hx Osteoporosis, Other Musculoskeletal History - Bone spurs knees - Surgical History Surgery Procedure, Year, and Place: left knee meniscus repair x 2 2003, 2009. right knee meniscus repair x 2 2001, 2006. Left hip pin, 1994 Hx Anesthesia Reactions: No - Immunization History Date of Tetanus Vaccine: within 10 years Infectious Disease History: No Infectious Disease History: Denies: Traveled Outside the [place] in Last 30 Days - Family History Known Family History: Positive: Diabetes - Social History Alcohol Use: Occasionally Hx Substance Use: No Substance Use Type: Reports: None Smoking Status (MU): Light Every Day Tobacco Smoker Physical Exam Vital Signs On Initial Exam: Initial Vitals Temp Pulse Resp BP Pulse Ox 98.6 F 98 15 132/69 95 01/18/18 03:17 01/18/18 03:17 01/18/18 03:17 01/18/18 03:17 01/18/18 03:17 Procedures - Splinting Left Upper Extremity Hand-Made Type: fiberglass Splint: posterior long arm Pre-Proc Neuro Vasc Exam: normal Post-Proc Neuro Vasc Exam: normal Diagnostics - Vital Signs Vital Signs Temp Pulse Resp BP Pulse Ox 01/18/18 03:17 98.6 F 98 15 132/69 95 - Laboratory Lab Statement: Any lab studies that have been ordered have been reviewed, and results considered in the medical decision making process. Course/Dx - Course Course Of Treatment: Lt elbow XR: no nga fx/dislocation however there appears to be a very small anterior fat pad sign - will tx as occult fx, splint and have f/u w/ ortho. - Diagnoses Provider Diagnoses: Left elbow fracture Discharge - Sign-Out/Discharge Documenting (check all that apply): Patient Departure - Discharge Plan Condition: Stable Disposition: HOME Prescriptions: HYDROcodone/ACETAMIN 5-325 MG* [[place] 5-325 TAB*] 1 tab PO Q6H PRN #12 tab MDD 4 PRN Reason: Pain Patient Education Materials: Elbow Fracture (ED), Splint Care (ED) Forms: *Work Release Referrals: Cornelio Prince MD [Medical Doctor] - Additional Instructions: You may have a fracture of your left elbow. Final XR read will be available later today. REST, ICE, ELEVATE AND KEEP SPLINT CLEAN, DRY AND IN PLACE UNTIL SEEN BY ORTHOPEDICS. Call orthopedics today to schedule follow-up You may take ibuprofen 800mg every 8 hours with food alternating with acetaminophen 975mg every 6 hours as needed for pain. STOP DICLOFENAC WHILE TAKING [id number] *If you develop numbness, tingling, weakness, swelling or skin discoloration, loosen YESENIA wrap and elevate arm for 20 minutes. If symptoms persist, return to ED - Billing Disposition and Condition Condition: STABLE Disposition: Home
[2018-01-18 07:11] VITALS: BP 102/66
--- NOTE | 2018-01-18 08:36 | RAD ---
HISTORY: trauma, pain COMPARISONS: None VIEWS: 3 , Frontal, lateral, and oblique views of the left elbow FINDINGS: BONE DENSITY: Normal. BONES: There is no displaced fracture. JOINTS: There is no arthropathy. There is a trace posterior supracondylar fat pad. ALIGNMENT: There is no dislocation. SOFT TISSUES: Unremarkable. OTHER FINDINGS: None. IMPRESSION: TRACE EFFUSION. WHILE THERE IS NO DISPLACED FRACTURE, AND THE SETTING OF TRAUMA, THE PRESENCE OF AN EFFUSION MAY INDICATE AN OCCULT FRACTURE. IF SYMPTOMS PERSIST, RECOMMEND REPEAT IMAGING R0
== END 2018-01-18 07:11 | disposition home or self-care (01) ==
LOC: ED 03:16
DX: S59.902A Unspecified injury of left elbow, initial encounter (principal); W07.XXXA Fall from chair, initial encounter; Y93.9 Activity, unspecified; Y92.9 Unspecified place or not applicable; F17.200 Nicotine dependence, unspecified, uncomplicated
CPT/HCPCS: 99282; A9270-GY

== ENCOUNTER 2018-01-20 10:00 | Inpatient (IN) | payer BC ==
--- OUTSIDE RECORDS SUMMARY | 2018-01-20 10:17 | XMS REPORT ---
:1985 External Reference #:[id number] Author Organization [facility] Address [address] [place] [address] [place] [address] Phone [phone] Care Team Providers Name Role Phone Jayy Marti D.O. Primary Care Physician Unavailable Payers Type Date Identification Numbers Payment Provider Subscriber Commercial Policy Number: [id number] [employer] Narciso Catalan PayID: [id number] [address] [address] [place] [address] Workers Compensation Onset: 2004 Policy Number: [employer] Narciso Catalan [id number] PayID: [id number] [address] [place] [address] Problems Date Description Provider Status Onset: 04/25/2016 Enthesopathy of knee Cornelio Prince M.D. Active Onset: 04/25/2016 Derangement of knee Cornelio Prince M.D. Active Onset: 01/18/2018 Cellulitis of forearm Vi Sarabia M.D. Active Onset: 05/23/2016 Arthroplasty of knee Cornelio Prince M.D. Active Family History Date Family Member(s) Problem(s) Comments General Diabetes mother General Hypertension mother/father General Heart Disease General Cancer Social History Type Date Description Comments Lives With Alone Occupation U[employer] ETOH Use 18 pack on weekends Smoking Patient is a current smoker, smokes every day Smoking Heavy tobacco smoker (more than 10 cigarettes/day) Exercise Type/Frequency Exercises regularly Allergies, Adverse Reactions, Alerts Date Description Reaction Status Severity Comments 06/06/2015 NKDA active Medications Medication Date Status Form Strength Qnty SIG Indications Ordering Provider Amoxicillin/C 01/18/ Active Tablets 875-125mg 14tabs 1 pill by L03.114 Vi sainz 2017 mouth twice Cornell, Potassium a day x 1 M.D. week Lisinopril 00/ Active Tablets 40mg 1 by mouth Unknown 0000 every day Omeprazole 00/00/ Active Capsules 40mg 1 by mouth Unknown 0000 DR every day Valium // Active Tablets 10mg 1 tabletprn Unknown 0000 Gabapentin / Active Capsules 300mg 1 by mouth Unknown 0000 three times a day Diclofenac / Active Tablets DR 75mg take 1 Unknown Sodium 0000 tablet twice a day with food Metoprolol / Active Tablets ER 200mg 1 by mouth Unknown Succinate ER 0000 24HR every day Ambien / Active Tablets 10mg take 1/2 to Unknown 0000 1 tablet by mouth nightly at bedime as needed maximum daily dose of 1 per day Hydrocodone / Active Unknown 0000 Mobic 04/25/ Hx Tablets 15mg 30tabs once daily M70.52 Cornelio 2017 - with food Niki, 05/21/ M.D. 2017 Opana ER 00/ Hx Tab ER 12H 30mg by mouth Unknown 0000 - Abuse-Det twice a day 2016 Celebrex / Hx Capsules 200mg 1 by mouth Unknown 0000 - every day 2017 Allopurinol 00/ Hx Tablets 300mg 1 by mouth Unknown 0000 - every day 2017 Toprol XL / Hx Tablets ER 200mg 1 by mouth Unknown 0000 - 24HR every day 2017 Hydrocodone-A 00/ Hx Tablets 5-325mg 1 by mouth Unknown cetaminophen 0000 - every 4-6 05/21/ hours prn. 2017 Seroquel / Hx Tablets 25mg 1 by mouth Unknown 0000 - every day 2017 Oxymorphone /00/ Hx Tablets 10mg 1 by mouth Unknown HCL 0000 - twice a day 2017 Zolpidem /00/ Hx Tablets 10mg 1/2 to 1 Unknown Tartrate 0000 - tab by 01/17/ mouth every 2017 night at bedtime as needed Robinul / Hx Tablets 1mg take 1 by Unknown 0000 - mouth or three 2018 times a day Oxybutynin 00/ Hx Tablets ER 5mg 1 by mouth Unknown Chloride ER 0000 - 24HR every day 2017 Medications Administered in Office Medication Date Status Form Strength Qnty SIG Indications Ordering Provider Depomedrol Administered Injection Dirk Lyubov, 40MG 010 M.D. Depomedrol Administered Injection Caballero, Lien, 40MG 010 PA Vital Signs Date Vital Result Comment 01/18/2018 Height 73 inches 6'1" Weight 281.00 lb Heart Rate 100 /min BP Systolic 126 mmHg BP Diastolic 60 mmHg BMI (Body Mass Index) 37.1 kg/m2 07/13/2017 Height 75 inches 6'3" Weight 290.00 lb Heart Rate 76 /min BP Systolic Recheck 130 mmHg BP Diastolic Recheck 84 mmHg Respiratory Rate 16 /min Body Temperature 97.7 F BMI (Body Mass Index) 36.2 kg/m2 09/17/2016 Height 75 inches 6'3" Weight 277.00 lb BP Systolic 130 mmHg BP Diastolic 80 mmHg Body Temperature 97.9 F Pain Level 0 BMI (Body Mass Index) 34.6 kg/m2 05/23/2016 Height 75 inches 6'3" Weight 290.00 lb Heart Rate 88 /min BP Systolic Recheck 126 mmHg BP Diastolic Recheck 84 mmHg Respiratory Rate 16 /min Body Temperature 98.3 F BMI (Body Mass Index) 36.2 kg/m2 04/25/2016 Height 75 inches 6'3" Weight 305.00 lb Heart Rate 80 /min BP Systolic Recheck 146 mmHg BP Diastolic Recheck 84 mmHg Respiratory Rate 16 /min Body Temperature 98.0 F BMI (Body Mass Index) 38.1 kg/m2 Results Description No Information Procedures Date CPT Code Description Status 04/25/2016 Inject/Drain Joint/Bursa Major W/O US Completed 05/26/2012 45520 Rad Exam; Hip Unilat Completed 05/26/2012 01885 Rad Exam; Pelvis Completed 01/28/2010 34187 Rad Exam; Both Knees, Standing Ap Completed 01/28/2010 Inject/Drain Joint/Bursa Major W/O US Completed 09/03/2009 55762 Rad Exam; Both Knees, Standing Ap Completed 09/03/200962412 Inject/Drain Joint/Bursa Major W/O US Completed Encounters Type Date Location Provider CPT E/M Dx Office Visit 01/18/2018 [facility] Vi Sarabia M.D. 93224 W19.xxxA 1:45p Of [facility] M25.522 L03.114 Office Visit 07/13/2017 9:45a [facility] Jayy Cast, 48034 M25.511 Of [facility] AT [facility] Office Visit 09/17/2016 10:00a [facility] Hillary Hickey, 23109 G56.32 Of [facility] Office Visit 05/23/2016 9:45a [facility] Cornelio Prince, 01263 M23.632 Of [facility] AT [facility] Z96.652 Office Visit 04/25/2016 9:00a [facility] Of Cornelio Prince, 87620 M70.52 [employer] AT [facility] M23.632 Z96.652 Office Visit 05/26/2012 8:00a [facility] Of Tuan Mcarthur M.D. 26786 716.95 C.M.A. 732.2 Office Visit 01/28/2010 2:45p [facility] Of Tuan Mcarthur M.D. 92007 716.96 C.M.A. Office Visit 09/03/2009 3:30p [facility] [place] [address] 716.96 C.M.A. Plan of Care Future Appointment(s):01/20/2018 9:00 am - Vi Sarabia M.D. at [facility] Brian01/26/2018 2:00 pm - Cornelio Prince M.D. at [facility] AT [facility]05/01/2018 - Vi Sarabia M.D.W19.xxxA Unspecified fall, initial cdelkmhhmM23.522 Pain in left euombZ82.114 Cellulitis of left upper limbNew Medication:Amoxicillin/Clavulanate Potassium 875-125 mgFollow up: Follow up: 01/20/18 am
[2018-01-20] MEDS ORDERED: Magnesium Hydroxide LIQ* 30 ML UDC PO PRN (10:23)
[2018-01-20] MEDS ORDERED: oxyCODONE/Acetamin 5/325 MG* TAB PO PRN (10:29)
[2018-01-20] MEDS ORDERED: Acetaminophen TAB* 325 MG PO PRN (10:29)
[2018-01-20] MEDS ORDERED: diPHENhydraMINE IV* 50 MG/ML 1 ml VIAL (BENADRYL) IV PRN (10:35)
[2018-01-20] MEDS ORDERED: Ondansetron INJ* 2 MG/ML VIAL IV PRN (10:35)
[2018-01-20] MEDS ORDERED: Docusate CAP* 100 MG PO PRN (10:35)
[2018-01-20] MEDS ORDERED: diPHENhydraMINE PO* 25 MG PO PRN (10:35)
[2018-01-20] MEDS ORDERED: Ondansetron TAB* 4 MG PO PRN (10:35)
[2018-01-20] MEDS ORDERED: Diazepam TAB(*) 10 MG PO PRN (10:38)
[2018-01-20] MEDS ORDERED: Zolpidem TAB* 10 MG PO PRN (10:44)
[2018-01-20] MEDS ORDERED: Morphine VIAL* 4 MG/ML VIAL (1 ml vial) IV ONE (10:48)
[2018-01-20 11:11] LABS: ABS Basophils 0 10^3/ul (0-0.2); ABS Eosinophils 0.1 10^3/ul (0-0.6); ABS Lymphocytes 1.1 10^3/ul (1.0-4.8); ABS Monocytes 0.6 10^3/ul (0-0.8); ABS Neutrophils 6.8 10^3/ul (1.5-7.7); ABS Nucleated RBC 0 10^3/ul; Eosinophil % 1.5 % (0-6); Hematocrit 35 % (42-52); Hemoglobin 12.1 g/dl (14.0-18.0); Lymphocyte % 12.3 % (25-47); Mean Corpuscular HGB Conc 35 g/dl (31-36); Mean Corpuscular Hemoglobin 33 pg (27-31); Mean Corpuscular Volume 94 fL (80-94); Mean Platelet Volume 9.6 um3 (7.4-10.4); Nucleated Red Blood Cells % 0; Platelet Count 125 10^3/ul (150-450); Red Blood Count 3.68 10^6/ul (4.00-5.40); Red Cell Distribution Width 12 % (10.5-15); White Blood Count 8.6 10^3/ul (3.5-10.8)
[2018-01-20 11:16] LABS: INR 1.06 (0.77-1.02)
[2018-01-20] MEDS: oxyCODONE/Acetamin 5/325 MG* TAB PO PRN ×3 (11:25→21:01)
[2018-01-20] MEDS ORDERED: Diazepam TAB(*) 5 MG PO PRN (12:00)
[2018-01-20] MEDS ORDERED: Vancomycin per Pharmacy* NOTE FOLLOW UP SCH (12:00)
[2018-01-20] MEDS ORDERED: Zosyn per Pharmacy* NOTE FOLLOW UP SCH (12:00)
[2018-01-20] MEDS ORDERED: Vancomycin(*) 2,000 MG in NS 0.9% 500 ML* 500 ML IVPB ONE (12:00)
[2018-01-20] MEDS ORDERED: ZOSYN 3.375 GM x ONE DOSE over 30 miuntes IVPB ×2 (12:00)
--- NOTE | 2018-01-20 13:55 | RAD ---
Indication: LEFT upper extremity cellulitis. Assess for deep soft tissue for joint infection. Comparison: January 18, 2018 radiographs. Technique: Noncontrast MRI LEFT elbow. Quill Contenta 1.5 Cheryl TM513B with GEM suite. Report: Normal articular alignment. Negative for joint effusion. Normal bone marrow signal throughout the [id number] without evidence for osteomyelitis. Extensive subcutaneous tissue plane edema with relative sparing at the volar radial aspect. Loculated fluid at the olecranon bursa measuring up to 4.1 cm transverse by 0.8 cm AP by 5.9 cm cephalocaudal. Given the clinical context infected bursitis should be considered. No additional loculated soft tissue plane fluid collection evident. Mild interstitial edema within the common flexor musculature extending from the medial epicondyle and up to 12 cm into the forearm concerning for myositis. No loculated fluid collection evident within the skeletal musculature. IMPRESSION: #. The constellation of findings is consistent with cellulitis and probable myositis at the common flexor musculature. #. Distended olecranon bursa concerning for infected bursitis. #. No additional loculated soft tissue plane fluid collection evident. #. No evidence for osteomyelitis or septic arthritis at the elbow.
[2018-01-20] MEDS: Morphine VIAL* 4 MG/ML VIAL (1 ml vial) IV PRN ×3 (14:27→22:15)
--- NOTE | 2018-01-20 14:46 | PN ---
Progress Note - Progress Note Date of Service: 01/20/18 Note: Pt was sent in as a direct admit from [facility] Orthopedics today by Dr. Sarabia, MRI was performed and reviewed. No need for washout at this time, no evidence of fluid collection or septic arthritis at the elbow. He will be kept on IV vancomycin and will continue to monitor progress. Blood cultures to be followed. Appreciate hospitalist and ID consultations.
--- NOTE | 2018-01-20 14:49 | CONS ---
CONSULTATION REPORT: DATE OF CONSULT: 01/20/18 REQUESTING PHYSICIAN: Dr. Saleh. CONSULTING SERVICE: Infectious Disease. REASON FOR CONSULT: Left arm infection. IMPRESSION: Recently fell of a stool, landed on his elbow, and x-ray initially showed no fracture but a small elbow effusion. Now, he has diffuse erythema, edema of the arm and pain with range of motion of the elbow in flexion, extension, pronation, and supination. Underlying septic elbow joint is a strong consideration. No bursitis evident. His left shoulder is nontender as is his wrist. Differentials would also include a soft tissue abscess. He had been on Augmentin as an outpatient with progression of his symptoms which may have been due to an undrained collection versus an uncovered organism, i.e., methicillin- resistant Staphylococcus aureus. RECOMMENDATION: Vancomycin goal trough 15 to 20. He is going to have an MRI today to evaluate the elbow joint if there is an effusion and he is being followed by Orthopedics for consideration of aspiration. HISTORY OF PRESENT ILLNESS: This 32-year-old man was healthy and then over the weekend fell of a stool, landed on his left elbow, seen in the emergency room. That day, an x-ray showed a small elbow effusion. He was put in a sling, followed up with Orthopedics, and had been on Augmentin for a day or two, but had progressive redness, swelling, pain with some fevers and chills at home and was sent from the orthopedics office today to the hospital for antibiotics and MRI study. He has pain with range of motion of the elbow, not of his shoulder or wrist. The redness and swelling is diffuse from mid upper arm to mid lower arm. It is pretty painful throughout. He has not had an infection requiring hospitalization in the past. PAST MEDICAL HISTORY: 1. Hypertension. 2. Status post left meniscus repair in 2003 and 2009. 3. Status post right meniscus repair in 2001 and 2006. 4. Status post left hip fixation, 1994. MEDICATIONS: 1. Tylenol. 2. Diazepam as needed. 3. Diclofenac twice a day. 4. Docusate. 5. Gabapentin. 6. Glycopyrrolate. 7. Lisinopril. 8. Morphine as needed. 9. Percocet as needed. 10. Zosyn 3.375 g every 8 hours. 11. Vancomycin. FAMILY HISTORY: Has no recurrent infections or tuberculosis. SOCIAL HISTORY: He works for [employer]. He lives in [place] with his father. He has no travel or sick contacts or injection drugs. REVIEW OF SYSTEMS: All negative to the 14-point review of systems except as noted above in the history of present illness. PHYSICAL EXAM: Vital Signs: Temperature is 37, heart rate is 82, respiratory rate 18, and oxygen saturation 98% on room air. General: He is awake, not in distress. Neurologic: He is oriented x3, follows all commands. Sensation is intact to light touch in both hands. HEENT: There is no conjunctival hemorrhage. Oropharynx without lesions. Neck is supple without mass. Heart: Regular rate and rhythm without murmurs, rubs, or gallops. Lungs are clear to auscultation bilaterally. Abdomen: Soft, nontender, and nondistended. There are bowel sounds present. Skin: There is diffuse erythema in his upper arm. No other rash or splinter hemorrhage. Musculoskeletal: There is no spine tenderness to palpation. There is no left shoulder or wrist tenderness to palpation. There is left elbow tenderness to palpation with diffuse edema, erythema, and warmth from the mid upper arm to the mid lower arm without crepitus or fluctuance. There is pain with flexion, extension, pronation, supination which is significant. LABORATORY DATA: White blood cell count 8, hemoglobin 12, platelets 125. Please see impressions and recommendations outlined above which was discussed with AVA David Thanks for asking me to see Mr. Catalan in consultation. [id number]/[facility] #: [id number] MTDElyssa
[2018-01-20] MEDS ORDERED: LORazepam TAB(*) 1 MG PO SCH (15:00)
--- NOTE | 2018-01-20 15:07 | RAD ---
INDICATION: Tobacco abuse. COMPARISON: Correlation is made with a prior study from November 07, 2008. TECHNIQUE: 2 portable films of the chest were obtained upright. FINDINGS: Cardiac and mediastinal contours appear to be within normal limits. The lungs are hyperinflated and clear. No pleural effusion is seen. IMPRESSION: HYPERINFLATION SUGGESTIVE OF CHRONIC PULMONARY DISEASE, NO EVIDENCE FOR ACUTE FINDING.
--- NOTE | 2018-01-20 15:37 | HP ---
ADMISSION HISTORY AND PHYSICAL: DATE OF ADMISSION: 01/20/18 CHIEF COMPLAINT: Left upper extremity cellulitis. ADMITTING DIAGNOSIS: Left upper extremity cellulitis. HISTORY OF PRESENT ILLNESS: Mr. Catalan is a 32-year-old gentleman, who now has 72 hours of increased pain, swelling, and erythema around the left upper extremity and elbow. His history is that on 01/17/18 he fell off a bar stool onto concrete. He had a small scratch on his left elbow. He went to [facility] Emergency Room and was told he had a possible nondisplaced fracture. He was initially placed in a splint and I first saw him on 01/18/18. I felt he had developing cellulitis with erythema and swelling. He had full range of motion of the elbow without an elbow effusion. I placed him on Augmentin and had him followup in 48 hours. Today, the patient is here for a recheck. His swelling and erythema have gotten worse. There are no palpable masses. He denies any fevers or chills. He denies any numbness. He denies IV drug abuse. PAST MEDICAL HISTORY: Hypertension, osteoarthritis, anxiety, gout, insomnia, morbid obesity, grief reaction, posttraumatic stress disorder, depression, anxiety, panic disorder, history of pneumonia. PAST SURGICAL HISTORY: Hip replacement, knee replacement. FAMILY HISTORY: Maternal diabetes and heart disease. Paternal hypertension and cancer. SOCIAL HISTORY: The patient lives alone. He works for [employer]. He smokes less than 1 pack of cigarettes per day, 18 alcoholic beverages per week. Normally very active, right-hand dominant. REVIEW OF SYSTEMS: Fourteen systems are reviewed with the patient today, positive for left elbow pain and swelling, left upper extremity swelling and redness, some night sweats, heart palpitations, PTSD, weight loss, seasonal allergies, anxiety. Otherwise, the patient reports review of systems is negative or not relevant. PHYSICAL EXAMINATION GENERAL: The patient is a well-nourished male, in no apparent distress. Alert and oriented x3. Pleasant mood and appropriate affect. Gait: The patient's gait is normal. He has abnormal arm swing and favors his left upper extremity. Coordination normal. VITAL SIGNS: Height is 6 feet 1 inch tall, weight of 281 pounds. Pulse of 92, temperature today 97.9. HEENT: Atraumatic, normocephalic. Pupils are equal and reactive to light. CHEST: Unlabored breathing. LUNGS: Clear to auscultation in all lung fernandez. No wheezes, rubs, or rhonchi. HEART: S1 and S2. ABDOMEN: Soft, nontender, nondistended. Bowel sounds in 4 quadrants. EXTREMITIES: Left upper extremity: The patient's skin has a small 2-mm opening along the olecranon bursa region. He demonstrates full extension of the elbow today to 110 degrees of flexion, but this does cause him some pain. No obvious effusion at the elbow, but he does have dense widespread swelling and erythema around the left upper extremity. This seems to be moving proximally and distally from his physical exam on Thursday. He has full motion of the thumb in all fingers, full sensation to light touch, and a 2+ palpable radial pulse. ASSESSMENT AND PLAN: Mr. Catalan is a 32-year-old gentleman with a fall 3 days ago and a small scrape on his arm. This has developed into a significant cellulitis that has not been helped by 48 hours of Augmentin. At this point, I am concerned about the increasing cellulitis. I am concerned about an elbow effusion or infection, although he does have good range of motion. I would like to direct admit this patient to [facility] and I will be the attending physician. I will plan to obtain lab work including CBC, ESR, and CRP. I would like blood cultures drawn. He will be placed on wide- spectrum antibiotics including vancomycin and most likely a second such as Zosyn. We will obtain an Infectious Disease consultation. I will have an MRI of the left upper extremity ordered to evaluate for elbow effusion or fluid collection. The patient will have p.r.n. analgesia. Based on his laboratory studies, we may consider a hospitalist consultation as well. The patient is headed currently for direct admission to [facility] and AVA David, will be writing the admission orders. [id number]/[facility] #: [id number] BELIA
[2018-01-20] MEDS: Metoprolol Succinate XL TAB* 100 MG PO SCH (16:15)
[2018-01-20] MEDS: oxyCODONE TAB* 5 MG TAB PO PRN (16:36)
[2018-01-20 17:12] LABS: ABS Basophils 0.1 10^3/ul (0-0.2); ABS Eosinophils 0.2 10^3/ul (0-0.6); ABS Lymphocytes 1.5 10^3/ul (1.0-4.8); ABS Monocytes 0.4 10^3/ul (0-0.8); ABS Neutrophils 6.6 10^3/ul (1.5-7.7); ABS Nucleated RBC 0 10^3/ul; Eosinophil % 2.6 % (0-6); Hematocrit 34 % (42-52); Hemoglobin 11.8 g/dl (14.0-18.0); Lymphocyte % 16.8 % (25-47); Mean Corpuscular HGB Conc 35 g/dl (31-36); Mean Corpuscular Hemoglobin 33 pg (27-31); Mean Corpuscular Volume 95 fL (80-94); Mean Platelet Volume 9.5 um3 (7.4-10.4); Nucleated Red Blood Cells % 0.1; Platelet Count 143 10^3/ul (150-450); Red Blood Count 3.56 10^6/ul (4.00-5.40); Red Cell Distribution Width 13 % (10.5-15); White Blood Count 8.7 10^3/ul (3.5-10.8)
[2018-01-20 17:22] LABS: INR 1.06 (0.77-1.02)
[2018-01-20 17:25] LABS: EGFR Non-African American 76.3 (>60)
[2018-01-20] MEDS ORDERED: Nicotine PATCH 21 MG/24 HR* PATCH ONE (17:30)
[2018-01-20] MEDS: Nicotine PATCH 21 MG/24 HR* PATCH TRANSDERM SCH (17:41)
[2018-01-20] MEDS: Heparin VIAL(*) 5000 UNITS/ML VIAL (FIVE THOUSAND) SUBCUT SCH (20:52)
[2018-01-20] MEDS: Nicotine Patch Removal NOTE FOLLOW UP SCH (20:52)
[2018-01-20] MEDS: Gabapentin CAP(*) 300 MG PO SCH (20:54)
[2018-01-20] MEDS ORDERED: Heparin VIAL(*) 5000 UNITS/ML VIAL (FIVE THOUSAND) SUBCUT SCH (21:00)
[2018-01-20] MEDS ORDERED: Diclofenac Sodium EC TAB* 25 MG PO SCH (21:00)
[2018-01-20] MEDS ORDERED: GLYCOPYRROLATE 1 MG PO SCH (21:00)
--- NOTE | 2018-01-20 21:12 | CONS ---
CC: Dr. Marti; Dr. Sarabia; Dr. Monk * CONSULTATION REPORT: DATE OF CONSULT: 01/20/18 PRIMARY CARE PROVIDER: Dr. Marti. ATTENDING PHYSICIAN WHILE IN THE HOSPITAL: Dr. Michael Thompson (report being dictated by Marbin Erazo NP). CHIEF COMPLAINT: Left arm pain, swelling, redness. HISTORY OF PRESENT ILLNESS: Mr. Catalan is a 32-year-old male patient. He carries a history of hypertension. He has a history of chronic pain. This weekend on Thursday, he was on a bar stool, he fell off the bar stool and landed on his left elbow. He woke up Thursday morning, he had a significant amount of pain and swelling in the left elbow. He went to the ER Thursday. They evaluated him. They were able to get him into Dr. Sarabia's office, who evaluated him and was concerned for cellulitis. He was started on Augmentin. He did note that there was redness near his elbow along the forearm. He denied having any fevers or chills. Denied having any chest pain or shortness of breath. He denied any nausea or vomiting. He said that he has been having some diarrhea since being put on the Augmentin, but he was concerned today, went back to Dr. Sarabia's office because the redness was getting worse. He was to be there for a routine followup and it was felt because it had progressed despite p.o. antibiotics that he would need IV antibiotics and was sent to the hospital. He was evaluated downstairs in the surgical stay unit. He denies any chest pain or shortness of breath. He denies having any vomiting. He denies any abdominal pain. He does state that he has some pain with flexion and extension, but he is able to flex and extend fully he says. He says he just feels tight. He denies any IV drug use, but because of his medical complexity, we were asked to evaluate in consult. PAST MEDICAL HISTORY: Significant for: 1. Hypertension. 2. Arthritis. 3. Chronic pain. PAST SURGICAL HISTORY: He has had a left total knee replacement and a left total hip replacement. He has had right knee arthroscopy. MEDICATIONS: Home meds according to his phone include: 1. Metoprolol XL 200 mg daily. 2. Lisinopril 40 mg daily. 3. [place] 1 tablet every 6 hours as needed. 4. Glycopyrrolate 2 mg p.o. b.i.d. 5. Gabapentin 300 mg p.o. b.i.d. 6. Voltaren 75 mg p.o. b.i.d. 7. Diazepam 10 mg every 8 hours as needed. ALLERGIES TO MEDICATIONS: Include no known drug allergies. FAMILY HISTORY: Mother had a history of arthritis. Father had a history of valvular heart disease. SOCIAL HISTORY: He is a pack-a-day smoker for about 15 years. He was not open to the nicotine replacement. He admits to drinking on Thursday-Thursday basis about every week. Surrogate decision makers are his parents. REVIEW OF SYSTEMS: There is no documented fever. He denied any chills. He denies having any double vision. There is no ear discharge. He denies having any rhinorrhea. There is no sore throat, no thyroid enlargement. Denied having any chest pain. There is no orthopnea. There is no nocturnal dyspnea. He denied having any abdominal pain. There was no nausea. There is no vomiting. There is no dysuria, no frequency. No seizure, no loss of consciousness. No pruritus. There is again erythema to the left elbow. Otherwise, review of 14 systems was completed, all others negative. PHYSICAL EXAM: Blood pressure 157/68, pulse 91, respirations are 18, O2 sat 100 %, temperature 97.5. General: At this time, Mr. Catalan is a 32-year-old male patient. He is sitting in the hospital bed. He does not appear to be in any acute distress. He is well nourished and well developed. HEENT: Head: Atraumatic and normocephalic. Eyes: EOMs are intact. Sclerae anicteric and not pale. Throat: Oral mucosa appears to be moist. No oropharyngeal erythema. Neck was supple. Heart: Sounds S1, S2. He had a regular rate and rhythm. No murmurs, rubs, or gallops. Lungs were clear to auscultation bilaterally. There were no wheezes, rales, or rhonchi. Abdomen was soft, flat, nontender. Bowel sounds are present. Extremities: Pulses were 2+ throughout. Distal CSM checks were intact to the left lower extremity. He does have flexion and extension to the elbow. There is some pain with this, but he does have full range of motion. He did have pronation and supination as well, again pain, but he has full range of motion noted in that left arm. He had 5/5 strength. Neurologically, he is awake, alert, and oriented x3. Skin: Grossly intact with exception he has an area of erythema basically extending from the mid forearm to the elbow and up into almost the axillary area, but it is warm to touch. There is an abrasion and small open area to his elbow. DIAGNOSTIC STUDIES/LAB DATA: Labs today reveal WBC of 8.6, RBC of 3.68, hemoglobin of 12.1, hematocrit of 35, and a platelet count of 125. ESR 90. INR was 1.06. The sodium was 137, potassium was 3.8, chloride of 105, bicarb 25 , BUN 18, creatinine of 1.14, glucose 145, calcium 9.1. Total bili 1.2, AST 17 , ALT 20, alk phos 39. CRP was 166. Albumin was 3.8. He had upper extremity MRI done today showing constellation of findings is consistent with cellulitis and probable myositis at the common flexor musculature, distended olecranon bursa concerning for infected bursitis. No additional loculated soft tissue plane fluid collection evident. No evidence for osteomyelitis or septic arthritis at the elbow. Old medical records were reviewed. ASSESSMENT AND PLAN: Mr. Catalan is a 32-year-old male patient presenting to Dr. Sarabia's office today for complaints of cellulitis and erythema to the left elbow that has gotten worse despite appropriate p.o. antibiotics. He was sent to the hospital for this. He will be admitted by Orthopedics. We were asked to evaluate in consult. My recommendations at this point are: 1. Left upper extremity cellulitis and left elbow bursitis. We will defer the management to Dr. Sarabia and her team, but the patient is on vancomycin. I would recommend getting blood cultures as well, which were sent and Dr. Monk has been consulted as well and will be evaluating the patient. 2. Hypertension. Continue meds as prescribed with exception of lisinopril. 3. Chronic pain. Continue meds as prescribed. 4. Question of alcoholism. Again, he does state that he drinks on Fridays and Saturdays and then it was reported that he may be drinking up to 18 to 20 beers a week, possibly more, so empirically I put him on the WAM protocol. 5. Tobacco abuse. I have offered smoking cessation and counseling. 6. DVT prophylaxis: We will defer to the primary team. 7. Code status: Full code. 8. Fluids, electrolytes, and nutrition: I would recommend a heart-healthy diet. TIME SPENT: Time spent on the consult was 60 minutes, greater than half the time was spent [id number] with the patient obtaining my history and physical, other half time was spent going over the plan of care with the patient and implementing plan of care. I did discuss the plan of care with my attending, Dr. Thompson; he is in agreement. MARBIN ERAZO, CHRISTIAN [id number]/[facility] #: [id number] MTDD
[2018-01-20] MEDS: Vancomycin(*) 1,500 MG in NS 0.9% 250 ML* 250 ML IVPB SCH (22:16)
[2018-01-21] MEDS: oxyCODONE TAB* 5 MG TAB PO PRN ×5 (00:10→22:42)
[2018-01-21] MEDS: Morphine VIAL* 4 MG/ML VIAL (1 ml vial) IV PRN ×4 (03:30→20:14)
[2018-01-21] MEDS: oxyCODONE/Acetamin 5/325 MG* TAB PO PRN ×3 (06:04→15:24)
[2018-01-21] MEDS: Vancomycin(*) 1,500 MG in NS 0.9% 250 ML* 250 ML IVPB SCH ×3 (06:05→21:44)
[2018-01-21 07:06] LABS: ABS Basophils 0 10^3/ul (0-0.2); ABS Eosinophils 0.2 10^3/ul (0-0.6); ABS Lymphocytes 1.4 10^3/ul (1.0-4.8); ABS Monocytes 0.5 10^3/ul (0-0.8); ABS Neutrophils 4.4 10^3/ul (1.5-7.7); ABS Nucleated RBC 0 10^3/ul; Eosinophil % 3.2 % (0-6); Hematocrit 32 % (42-52); Hemoglobin 11.2 g/dl (14.0-18.0); Lymphocyte % 21.7 % (25-47); Mean Corpuscular HGB Conc 35 g/dl (31-36); Mean Corpuscular Hemoglobin 33 pg (27-31); Mean Corpuscular Volume 94 fL (80-94); Mean Platelet Volume 8.9 um3 (7.4-10.4); Nucleated Red Blood Cells % 0.1; Platelet Count 161 10^3/ul (150-450); Red Blood Count 3.36 10^6/ul (4.00-5.40); Red Cell Distribution Width 12 % (10.5-15); White Blood Count 6.6 10^3/ul (3.5-10.8)
--- NOTE | 2018-01-21 08:19 | PN ---
Progress Note - Progress Note Date of Service: 01/21/18 SOAP: Subjective: 32 y.o male with fall and L upper extremity cellulitis. Currently on vanco for broad spectrum IV ABX. VSS, afebrile, labs WNLs. Patient eager for D/C , noticing improvement with redness. Objective: General- well appearing, NAD, resting in bed comfortably. MSK- erythema with mild induration noted over L forearm, upper arm, worse over elbow. 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 Assessment: 32 y.o male with fall and L upper extremity cellulitis. Vital Signs Temp 99.0 F 01/21/18 08:03 Pulse 84 01/21/18 08:03 Resp 18 01/21/18 08:54 BP 142/61 01/21/18 08:03 Pulse Ox 97 01/21/18 08:03 Intake & Output 01/20/18 01/21/18 01/21/18 18:59 06:59 18:59 Intake Total 964 875 310 Output Total 0 2725 775 Balance 964 -6160 -465 Weight 127.459 kg Intake: IVPB 530 275 295 ABX - VANCOMYCIN 530 275 295 Medicated IV 434 15 LR 434 15 Oral 0 600 Output: Urine 0 2725 775 Plan: - Blood cultures: Pending - Blood work: Stable - Consult for ID placed- continue vanco, will contact for possible D/C plan - no OR planned currently - JOHNNIE- cellulitis, no osteomyelitis, abscess noted. Acetaminophen (Tylenol Tab*) 650 mg PO Q4H PRN PRN Reason: FEVER/PAIN Diphenhydramine HCl (Benadryl Iv*) 25 mg IV Q6H PRN PRN Reason: itching Diphenhydramine HCl (Benadryl Po*) 25 mg PO Q6H PRN PRN Reason: itching Docusate Sodium (Colace Cap*) 100 mg PO BID PRN PRN Reason: CONSTIPATION Folic Acid (Folvite Tab*) 1 mg PO DAILY [facility] Last Admin: 01/21/18 08:45 Dose: 1 mg Gabapentin (Neurontin Cap(*)) 300 mg PO BID [facility] Last Admin: 01/21/18 08:45 Dose: 300 mg Heparin Sodium (Porcine) (Heparin Vial(*)) 5,000 units SUBCUT Q12HR [facility] Last Admin: 01/21/18 08:43 Dose: 5,000 units Vancomycin HCl 1,500 mg/ (Sodium Chloride) 250 mls @ 166.667 mls/hr IVPB Q8H [facility] Last Admin: 01/21/18 06:05 Dose: 166.667 mls/hr Lorazepam (Ativan Tab(*)) 0 - 6 mg PO .PER [facility] PROTOCOL [facility]; Protocol Magnesium Hydroxide (Milk Of Magnesia Liq*) 30 ml PO Q6H PRN PRN Reason: constipation Metoprolol Succinate (Toprol Xl Tab*) 200 mg PO DAILY@1600 [facility] Last Admin: 01/20/18 16:15 Dose: 200 mg Morphine Sulfate (Morphine Vial*) 2 mg IV Q2H PRN PRN Reason: PAIN - UNRELIEVED Last Admin: 01/21/18 06:42 Dose: 2 mg Multivitamins/Minerals (Theragran/Minerals Tab*) 1 tab PO DAILY [facility] Last Admin: 01/21/18 08:45 Dose: 1 tab Nicotine (Nicotine Patch 21 Mg/24 Hr*) 1 patch TRANSDERM DAILY [facility] Last Admin: 01/21/18 08:43 Dose: 1 patch Ondansetron HCl (Zofran Inj*) 4 mg IV Q6H PRN PRN Reason: nausea Ondansetron HCl (Zofran Tab*) 4 mg PO Q6H PRN PRN Reason: NAUSEA Oxycodone HCl (Roxycodone Tab*) 10 mg PO Q4H PRN PRN Reason: PAIN - BREAKTHROUGH Last Admin: 01/21/18 08:54 Dose: 10 mg Oxycodone/Acetaminophen (Percocet 5/325 Tab*) 2 tab PO Q4H PRN PRN Reason: PAIN - SEVERE Last Admin: 01/21/18 06:04 Dose: 2 tab Oxycodone/Acetaminophen (Percocet 5/325 Tab*) 1 tab PO Q4H PRN PRN Reason: PAIN - MODERATE Pharmacy Consult (Vancomycin Per Pharmacy*) 1 note FOLLOW UP .VANC PER PHARMACY [facility] Pharmacy Profile Note (Vancomycin Trough Check) 1 note FOLLOW UP .ENTER TIME ONE Stop: 01/21/18 13:31 Pharmacy Profile Note (Nicotine Patch Removal Note*) 1 note FOLLOW UP 2100 [facility] Last Admin: 01/20/18 20:52 Dose: 1 note Thiamine HCl (Vitamin B-1 Tab*) 100 mg PO DAILY [facility] Last Admin: 01/21/18 08:46 Dose: 100 mg
[2018-01-21] MEDS: Nicotine PATCH 21 MG/24 HR* PATCH TRANSDERM SCH (08:43)
[2018-01-21] MEDS: Heparin VIAL(*) 5000 UNITS/ML VIAL (FIVE THOUSAND) SUBCUT SCH ×2 (08:43→20:16)
[2018-01-21] MEDS: Folic Acid TAB* 1 MG PO SCH (08:45)
[2018-01-21] MEDS: Gabapentin CAP(*) 300 MG PO SCH ×2 (08:45→20:17)
[2018-01-21] MEDS: Multivitamins/Minerals TAB PO SCH (08:45)
[2018-01-21] MEDS: Thiamine TAB* 100 MG TAB PO SCH (08:46)
[2018-01-21] MEDS ORDERED: Metoprolol Succinate XL TAB* 100 MG PO SCH (09:00)
[2018-01-21] MEDS ORDERED: Lisinopril TAB* 10 MG PO SCH (09:00)
--- NOTE | 2018-01-21 11:01 | PN ---
Progress Note - Progress Note Date of Service: 01/21/18 SOAP: Subjective: CC: left arm infection HPI: 32 year old man with left arm redness, swelling, pain after a fall on his elbow. Today elbow ROM is improved and less painful, he still has pain medial elbow with some firmness in that area. A small pimple opened up over his lateral elbow. No fever, rash, or diarrhea. Objective: Vital Signs Temp 37.4 C 01/21/18 10:01 Pulse 89 01/21/18 10:01 Resp 18 01/21/18 10:48 BP 110/56 01/21/18 10:01 Pulse Ox 96 01/21/18 10:01 Intake & Output 01/20/18 01/21/18 01/21/18 18:59 06:59 18:59 Intake Total 964 875 310 Output Total 0 2725 775 Balance 964 -7820 -465 Weight 281 lb Intake: IVPB 530 275 295 ABX - VANCOMYCIN 530 275 295 Medicated IV 434 15 LR 434 15 Oral 0 600 Output: Urine 0 2725 775 Gen:awake, no distress HEENT: no thrush Heart:RRR no murmur Lungs:CTA BL Abd:+BS NTND soft Skin: no rash MSK: Left arm patchy blanching erythema and edema with some lymphangitic spread. Elbow flexion/extension decreased but improved. small amount serous drainage over olecranon Laboratory Results - last 24 hr 01/20/18 01/20/18 01/20/18 10:57 10:57 10:57 WBC 8.6 RBC 3.68 L Hgb 12.1 L Hct 35 L MCV 94 MCH 33 H MCHC 35 RDW 12 Plt Count 125 L MPV 9.6 Neut % (Auto) 79.2 Lymph % (Auto) 12.3 L Owsley % (Auto) 6.4 Eos % (Auto) 1.5 Baso % (Auto) 0.6 Absolute Neuts (auto) 6.8 Absolute Lymphs (auto) 1.1 Absolute Monos (auto) 0.6 Absolute Eos (auto) 0.1 Absolute Basos (auto) 0 Absolute Nucleated RBC 0 Nucleated RBC % 0 ESR 90 H INR (Anticoag Therapy) 1.06 H APTT Sodium 137 Potassium 3.8 Chloride 105 Carbon Dioxide 25 Anion Gap 7 BUN 18 Creatinine 1.14 Est GFR ( Amer) 89.5 Est GFR (Non-Af Amer) 74.0 BUN/Creatinine Ratio 15.8 Glucose 145 H Calcium 9.1 Total Bilirubin 1.20 H AST 17 ALT 20 Alkaline Phosphatase 39 C-Reactive Protein 166.41 H Total Protein 6.6 Albumin 3.8 Globulin 2.8 Albumin/Globulin Ratio 1.4 01/20/18 01/20/18 01/20/18 17:00 17:00 17:00 WBC 8.7 RBC 3.56 L Hgb 11.8 L Hct 34 L MCV 95 H MCH 33 H MCHC 35 RDW 13 Plt Count 143 L MPV 9.5 Neut % (Auto) 75.4 Lymph % (Auto) 16.8 L Owsley % (Auto) 4.6 Eos % (Auto) 2.6 Baso % (Auto) 0.6 Absolute Neuts (auto) 6.6 Absolute Lymphs (auto) 1.5 Absolute Monos (auto) 0.4 Absolute Eos (auto) 0.2 Absolute Basos (auto) 0.1 Absolute Nucleated RBC 0 Nucleated RBC % 0.1 ESR INR (Anticoag Therapy) 1.06 H APTT 28.4 Sodium Potassium Chloride Carbon Dioxide Anion Gap BUN 21 Creatinine 1.11 Est GFR ( Amer) 92.3 Est GFR (Non-Af Amer) 76.3 BUN/Creatinine Ratio Glucose Calcium Total Bilirubin AST ALT Alkaline Phosphatase C-Reactive Protein Total Protein Albumin Globulin Albumin/Globulin Ratio 01/21/18 01/21/18 07:00 07:00 WBC 6.6 RBC 3.36 L Hgb 11.2 L Hct 32 L MCV 94 MCH 33 H MCHC 35 RDW 12 Plt Count 161 MPV 8.9 Neut % (Auto) 66.6 Lymph % (Auto) 21.7 L Owsley % (Auto) 8.0 H Eos % (Auto) 3.2 Baso % (Auto) 0.5 Absolute Neuts (auto) 4.4 Absolute Lymphs (auto) 1.4 Absolute Monos (auto) 0.5 Absolute Eos (auto) 0.2 Absolute Basos (auto) 0 Absolute Nucleated RBC 0 Nucleated RBC % 0.1 ESR INR (Anticoag Therapy) APTT Sodium 135 Potassium 4.8 Chloride 102 Carbon Dioxide 26 Anion Gap 7 BUN 13 Creatinine 0.79 Est GFR ( Amer) 136.7 Est GFR (Non-Af Amer) 113.0 BUN/Creatinine Ratio 16.5 Glucose 104 H Calcium 8.8 Total Bilirubin AST ALT Alkaline Phosphatase C-Reactive Protein Total Protein Albumin Globulin Albumin/Globulin Ratio Assessment: 1. left arm cellulitis, infective myositis, olecranon bursitis 2. elevated CRP 3. tobacco abuse Plan: 1. continue vancomycin goal tr 15-20, swab sent of drainage ?communicating with olecranon bursa. He is agreeable to staying for more IV antibiotics. Recheck CRP 10/5 (ordered) Discussed with Stacey ESCALANTE 35 minutes floor time >50% face to face in counseling regarding continued antibiotic plans and follow up of his arm
[2018-01-21] MEDS ORDERED: Vancomycin Trough Check NOTE FOLLOW UP ONE (13:30)
--- NOTE | 2018-01-21 15:14 | PN ---
Subjective Date of Service: 01/21/18 Interval History: Patient feels as is if the pain in his arm is diminishing and the erythema is getting better. Patient states the pain is worst with movement and that he cannot straighten out his arm. Patient states the pain in worst over the medial epicondyle. Patient denies F/C, N/V, abdominal pain, dysuria, CP, SOB, tick bites, or other pain. Patient denies recent changes in his medications or diet. Patient had diarrhea associated with his augmentin which has resolved. Family History: Unchanged from Admission Social History: Unchanged from Admission Past Medical History: Unchanged from Admission Objective Active Medications: Acetaminophen (Tylenol Tab*) 650 mg PO Q4H PRN PRN Reason: FEVER/PAIN Diphenhydramine HCl (Benadryl Iv*) 25 mg IV Q6H PRN PRN Reason: itching Diphenhydramine HCl (Benadryl Po*) 25 mg PO Q6H PRN PRN Reason: itching Docusate Sodium (Colace Cap*) 100 mg PO BID PRN PRN Reason: CONSTIPATION Folic Acid (Folvite Tab*) 1 mg PO DAILY [facility] Last Admin: 01/21/18 08:45 Dose: 1 mg Gabapentin (Neurontin Cap(*)) 300 mg PO BID [facility] Last Admin: 01/21/18 08:45 Dose: 300 mg Heparin Sodium (Porcine) (Heparin Vial(*)) 5,000 units SUBCUT Q12HR [facility] Last Admin: 01/21/18 08:43 Dose: 5,000 units Vancomycin HCl 1,500 mg/ (Sodium Chloride) 250 mls @ 166.667 mls/hr IVPB Q8H [facility] Last Admin: 01/21/18 06:05 Dose: 166.667 mls/hr Lorazepam (Ativan Tab(*)) 0 - [address] [facility] PROTOCOL [facility]; Protocol Magnesium Hydroxide (Milk Of Magnesia Liq*) 30 ml PO Q6H PRN PRN Reason: constipation Metoprolol Succinate (Toprol Xl Tab*) 200 mg PO DAILY@1600 [facility] Last Admin: 01/20/18 16:15 Dose: 200 mg Morphine Sulfate (Morphine Vial*) 2 mg IV Q2H PRN PRN Reason: PAIN - UNRELIEVED Last Admin: 01/21/18 06:42 Dose: 2 mg Multivitamins/Minerals (Theragran/Minerals Tab*) 1 tab PO DAILY [facility] Last Admin: 01/21/18 08:45 Dose: 1 tab Nicotine (Nicotine Patch 21 Mg/24 Hr*) 1 patch TRANSDERM DAILY [facility] Last Admin: 01/21/18 08:43 Dose: 1 patch Ondansetron HCl (Zofran Inj*) 4 mg IV Q6H PRN PRN Reason: nausea Ondansetron HCl (Zofran Tab*) 4 mg PO Q6H PRN PRN Reason: NAUSEA Oxycodone HCl (Roxycodone Tab*) 10 mg PO Q4H PRN PRN Reason: PAIN - BREAKTHROUGH Last Admin: 01/21/18 13:31 Dose: 10 mg Oxycodone/Acetaminophen (Percocet 5/325 Tab*) 2 tab PO Q4H PRN PRN Reason: PAIN - SEVERE Last Admin: 01/21/18 10:48 Dose: 2 tab Oxycodone/Acetaminophen (Percocet 5/325 Tab*) 1 tab PO Q4H PRN PRN Reason: PAIN - MODERATE Pharmacy Consult (Vancomycin Per Pharmacy*) 1 note FOLLOW UP .VANC PER PHARMACY [facility] Pharmacy Profile Note (Nicotine Patch Removal Note*) 1 note FOLLOW UP 2100 [facility] Last Admin: 01/20/18 20:52 Dose: 1 note Thiamine HCl (Vitamin B-1 Tab*) 100 mg PO DAILY [facility] Last Admin: 01/21/18 08:46 Dose: 100 mg Vital Signs - 8 hr 01/21/18 01/21/18 01/21/18 08:00 08:03 08:45 Temperature 99.0 F Pulse Rate 84 Respiratory 18 18 18 Rate Blood Pressure 142/61 (mmHg) O2 Sat by Pulse 97 97 Oximetry 01/21/18 01/21/18 01/21/18 08:54 10:01 10:48 Temperature 99.3 F Pulse Rate 89 Respiratory 18 18 18 Rate Blood Pressure 110/56 (mmHg) O2 Sat by Pulse 96 Oximetry 01/21/18 01/21/18 01/21/18 11:45 11:46 12:01 Temperature 99.5 F Pulse Rate 89 Respiratory 18 18 18 Rate Blood Pressure 150/58 (mmHg) O2 Sat by Pulse 98 Oximetry 01/21/18 01/21/18 01/21/18 13:31 13:51 14:51 Temperature 99.0 F Pulse Rate 94 Respiratory 18 16 18 Rate Blood Pressure 134/57 (mmHg) O2 Sat by Pulse 95 Oximetry Oxygen Devices in Use Now: None Appearance: Patient is a 32yo male who appears stated age and is sitting in the bed in NAD. Eyes: No Scleral Icterus, PERRLA Ears/Nose/Mouth/Throat: NL Teeth, Lips, Gums, Clear Oropharnyx, Mucous Membranes Moist Neck: NL Appearance and Movements; NL JVP, Trachea Midline Respiratory: Symmetrical Chest Expansion and Respiratory Effort, Clear to Auscultation Cardiovascular: NL Sounds; No Murmurs; No JVD, RRR, No Edema Abdominal: NL Sounds; No Tenderness; No Distention, No Hepatosplenomegaly Lymphatic: No Cervical Adenopathy Extremities: No Edema, No Clubbing, Cyanosis Skin: No Nodules or Sclerosis, - - Large area of erythema on left arm. Neurological: Alert and Oriented x 3, NL Sensation, NL Muscle Strength and Tone , - Result Diagrams: 01/21/18 07:00 01/21/18 07:00 Microbiology and Other Data: Microbiology 01/21/18 10:50 Gram Stain - Final Elbow Left 01/20/18 10:57 Aerobic Blood Culture - Preliminary Blood Venous No Growth Day 1 Anaerobic Blood Culture - Preliminary No Growth Day 1 Assess/Plan/Problems-Billing Assessment: Patient is a 32yo male with a PMH only for HTN who presents with severe cellulitis of his left arm after a fall. Patient has no abscess or septic joint and is improving on IV antibiotics. - Patient Problems (1) Left arm cellulitis Current Visit: Yes Status: Acute Code(s): L03.114 - CELLULITIS OF LEFT UPPER LIMB SNOMED Code(s): 228494534 Comment: - Severe, with possibly associated bursitis, no septic joint on MRI - Continue IV vancomycin - No need for surgical intervention (2) Hypertension Current Visit: Yes Status: Acute Code(s): I10 - ESSENTIAL (PRIMARY) HYPERTENSION SNOMED Code(s): 51292489 Comment: - Continue Metoprolol - Hold Lisinopril - Normotensive. (3) Chronic pain Current Visit: Yes Status: Acute Code(s): G89.29 - OTHER CHRONIC PAIN SNOMED Code(s): 39857554 Comment: - Controlled with Gabapentin and home opiates. (4) DVT prophylaxis Current Visit: Yes Status: Acute Code(s): CZV2836 - SNOMED Code(s): 671252625 Comment: - Heparin SubQ (5) Full code status Current Visit: Yes Status: Acute Code(s): Z78.9 - OTHER SPECIFIED HEALTH STATUS SNOMED Code(s): 877217589
[2018-01-21] MEDS: Metoprolol Succinate XL TAB* 100 MG PO SCH (15:25)
[2018-01-21] MEDS: Nicotine Patch Removal NOTE FOLLOW UP SCH (22:45)
[2018-01-22] MEDS: Morphine VIAL* 4 MG/ML VIAL (1 ml vial) IV PRN ×7 (02:07→19:48)
[2018-01-22] MEDS: oxyCODONE TAB* 5 MG TAB PO PRN ×4 (04:23→21:59)
[2018-01-22 05:49] LABS: EGFR Non-African American 116.4 (>60)
[2018-01-22] MEDS: Vancomycin(*) 1,500 MG in NS 0.9% 250 ML* 250 ML IVPB SCH ×3 (06:18→22:01)
[2018-01-22] MEDS: Folic Acid TAB* 1 MG PO SCH (08:44)
[2018-01-22] MEDS: Thiamine TAB* 100 MG TAB PO SCH (08:44)
[2018-01-22] MEDS: Multivitamins/Minerals TAB PO SCH (08:44)
[2018-01-22] MEDS: Gabapentin CAP(*) 300 MG PO SCH ×2 (08:44→21:57)
[2018-01-22] MEDS: Nicotine PATCH 21 MG/24 HR* PATCH TRANSDERM SCH (08:45)
--- NOTE | 2018-01-22 08:57 | PN ---
Progress Note - Progress Note Date of Service: 01/22/18 SOAP: Subjective: Pt. is alert, reports redness is improving but olecranon bursa giving increased pain. Objective: Vital Signs: Temp Pulse Resp BP Pulse Ox 100.6 F 86 16 154/80 97 01/22/18 07:58 01/22/18 07:58 01/22/18 08:53 01/22/18 07:58 01/22/18 07:58 Laboratory Results - last 24 hr 01/21/18 01/21/18 01/22/18 07:00 13:51 05:03 Sodium 135 Potassium 4.2 Chloride 101 Carbon Dioxide 28 Anion Gap 6 BUN 11 Creatinine 0.77 Est GFR ( Amer) 140.8 Est GFR (Non-Af Amer) 116.4 BUN/Creatinine Ratio 14.3 Glucose 109 H Calcium 9.2 Total Bilirubin 0.70 AST 35 ALT 51 Alkaline Phosphatase 42 C-Reactive Protein 109.11 H Total Protein 6.4 Albumin 3.7 Globulin 2.7 Albumin/Globulin Ratio 1.4 Vancomycin Trough 11.4 HIV 1&2 Antibody Nonreactive LUE: erythema and cellulitis improved both distally and proximally. Olecranon bursa has palpable fluid and is extremely tender to touch. Elbow range of motion 0-120 when prompted but painful. Distally nvi. Assessment: 32 yo M with LUE cellulitis and infected olecran bursa. Plan: IV abx cont Appreciate ID consult cellulitis improved, bursitis infection worse - plan approx 16:00 I and D today in OR NPO
[2018-01-22] MEDS ORDERED: Bacitracin IV* 50,000 UNITS INJ ONE (09:51)
[2018-01-22] MEDS: Heparin VIAL(*) 5000 UNITS/ML VIAL (FIVE THOUSAND) SUBCUT SCH ×2 (09:52→22:00)
[2018-01-22] MEDS ORDERED: Bupivacaine 0.25% SDV* 30 ML ONE (10:59)
[2018-01-22] MEDS ORDERED: Lidocaine 2% PF * 5 ML VIAL ONE (11:11)
[2018-01-22] MEDS ORDERED: Dexamethasone IV* 4 MG/ML 1 ML (4 MG) ONE (11:11)
[2018-01-22] MEDS ORDERED: Ondansetron INJ* 2 MG/ML VIAL ONE (11:11)
[2018-01-22] MEDS ORDERED: Ketorolac INJ* 30 MG/ML 1 ML VIAL ONE (11:11)
[2018-01-22] MEDS ORDERED: Propofol* 10 MG/ML 20 ML BTL IV PUSH ONE ×2 (11:11→12:08)
[2018-01-22] MEDS ORDERED: KETAMINE HCL* 50 MG/ML 10 ML VIAL ONE (11:12)
[2018-01-22] MEDS ORDERED: fentaNYL* 50 MCG/ML 2 ML VIAL (100 MCG VIAL) ONE ×2 (11:12→12:31)
[2018-01-22] MEDS ORDERED: Midazolam* 1 MG/ML 5 ML VIAL (5 MG) ONE (11:12)
[2018-01-22] MEDS ORDERED: ceFAZolin 2 GM in NS PREMIX(*) 2 GM/100 ML BAG IVPB ONE (11:30)
[2018-01-22] MEDS ORDERED: ceFAZolin 1 GM in Dextrose (*) 1 GM/50 ML BAG IVPB ONE (11:32)
[2018-01-22] MEDS ORDERED: Ondansetron INJ* 2 MG/ML VIAL IV PRN (12:39)
[2018-01-22] MEDS ORDERED: fentaNYL* 50 MCG/ML 2 ML VIAL (100 MCG VIAL) IV PRN (12:39)
[2018-01-22] MEDS ORDERED: Naloxone* 0.4 MG/ML 1 ML VIAL IV PRN (12:39)
[2018-01-22] MEDS ORDERED: HYDROmorphone INJ1* 1 MG/ML SYRINGE ONE (13:49)
[2018-01-22] MEDS: HYDROmorphone INJ1* 1 MG/ML SYRINGE IV PRN ×2 (13:50→14:03)
[2018-01-22] MEDS: Metoprolol Succinate XL TAB* 100 MG PO SCH (15:24)
--- NOTE | 2018-01-22 15:35 | PN ---
Subjective Date of Service: 01/22/18 Interval History: Patient was seen after returning from PACU. He had a left elbow I&D done today by Dr. Sarabia. Reports some elbow pain, but denies chest pain, fever or chills. Ortho note reviewed from this AM, cellulitis improving, however L olecranon bursitis was worsening promoting surgical intervention. Family History: Unchanged from Admission Social History: Unchanged from Admission Past Medical History: Unchanged from Admission Objective Active Medications: Acetaminophen (Tylenol Tab*) 650 mg PO Q4H PRN PRN Reason: FEVER/PAIN Diphenhydramine HCl (Benadryl Iv*) 25 mg IV Q6H PRN PRN Reason: itching Diphenhydramine HCl (Benadryl Po*) 25 mg PO Q6H PRN PRN Reason: itching Docusate Sodium (Colace Cap*) 100 mg PO BID PRN PRN Reason: CONSTIPATION Folic Acid (Folvite Tab*) 1 mg PO DAILY [facility] Last Admin: 01/22/18 08:44 Dose: 1 mg Gabapentin (Neurontin Cap(*)) 300 mg PO BID [facility] Last Admin: 01/22/18 08:44 Dose: 300 mg Heparin Sodium (Porcine) (Heparin Vial(*)) 5,000 units SUBCUT Q12HR [facility] Last Admin: 01/22/18 09:52 Dose: Not Given Vancomycin HCl 1,500 mg/ (Sodium Chloride) 250 mls @ 166.667 mls/hr IVPB Q8H [facility] Last Admin: 01/22/18 14:59 Dose: 166.667 mls/hr Lorazepam (Ativan Tab(*)) 0 - 6 mg PO .PER [place] PROTOCOL [facility]; Protocol Magnesium Hydroxide (Milk Of Magnesia Liq*) 30 ml PO Q6H PRN PRN Reason: constipation Metoprolol Succinate (Toprol Xl Tab*) 200 mg PO DAILY@1600 [facility] Last Admin: 01/22/18 15:24 Dose: 200 mg Morphine Sulfate (Morphine Vial*) 2 mg IV Q2H PRN PRN Reason: PAIN - UNRELIEVED Last Admin: 01/22/18 10:54 Dose: 2 mg Multivitamins/Minerals (Theragran/Minerals Tab*) 1 tab PO DAILY [facility] Last Admin: 01/22/18 08:44 Dose: 1 tab Nicotine (Nicotine Patch 21 Mg/24 Hr*) 1 patch TRANSDERM DAILY [facility] Last Admin: 01/22/18 08:45 Dose: 1 patch Ondansetron HCl (Zofran Inj*) 4 mg IV Q6H PRN PRN Reason: nausea Ondansetron HCl (Zofran Tab*) 4 mg PO Q6H PRN PRN Reason: NAUSEA Oxycodone HCl (Roxycodone Tab*) 10 mg PO Q4H PRN PRN Reason: PAIN - BREAKTHROUGH Last Admin: 01/22/18 15:24 Dose: 10 mg Oxycodone/Acetaminophen (Percocet 5/325 Tab*) 2 tab PO Q4H PRN PRN Reason: PAIN - SEVERE Last Admin: 01/21/18 15:24 Dose: 2 tab Oxycodone/Acetaminophen (Percocet 5/325 Tab*) 1 tab PO Q4H PRN PRN Reason: PAIN - MODERATE Pharmacy Consult (Vancomycin Per Pharmacy*) 1 note FOLLOW UP .VANC PER PHARMACY [facility] Pharmacy Profile Note (Nicotine Patch Removal Note*) 1 note FOLLOW UP 2100 [facility] Last Admin: 01/21/18 22:45 Dose: 1 note Thiamine HCl (Vitamin B-1 Tab*) 100 mg PO DAILY [facility] Last Admin: 01/22/18 08:44 Dose: 100 mg Vital Signs - 8 hr 01/22/18 01/22/18 01/22/18 07:58 08:00 08:44 Temperature 100.6 F Pulse Rate 86 Respiratory 18 16 16 Rate Blood Pressure 154/80 (mmHg) O2 Sat by Pulse 97 Oximetry 01/22/18 01/22/18 01/22/18 08:52 08:53 10:54 Temperature Pulse Rate Respiratory 16 16 18 Rate Blood Pressure (mmHg) O2 Sat by Pulse Oximetry 01/22/18 01/22/18 01/22/18 13:29 13:30 13:32 Temperature 98.4 F Pulse Rate 93 95 94 Respiratory 26 Rate Blood Pressure 135/67 125/69 (mmHg) O2 Sat by Pulse 94 92 93 Oximetry 01/22/18 01/22/18 01/22/18 13:35 13:46 13:50 Temperature Pulse Rate 92 95 Respiratory 23 17 24 Rate Blood Pressure 140/73 117/69 (mmHg) O2 Sat by Pulse 91 95 Oximetry 01/22/18 01/22/18 01/22/18 14:00 14:01 14:03 Temperature Pulse Rate 87 90 Respiratory 16 11 14 Rate Blood Pressure 119/69 (mmHg) O2 Sat by Pulse 97 98 Oximetry 01/22/18 01/22/18 01/22/18 14:04 14:16 15:24 Temperature 98.1 F Pulse Rate 90 Respiratory 10 16 Rate Blood Pressure 148/65 (mmHg) O2 Sat by Pulse 94 Oximetry Oxygen Devices in Use Now: Nasal Cannula Appearance: Appears comfortable and in NAD Eyes: No Scleral Icterus, PERRLA Ears/Nose/Mouth/Throat: Clear Oropharnyx, Mucous Membranes Moist Neck: NL Appearance and Movements; NL JVP, Trachea Midline Respiratory: Symmetrical Chest Expansion and Respiratory Effort, Clear to Auscultation Cardiovascular: NL Sounds; No Murmurs; No JVD, RRR Abdominal: NL Sounds; No Tenderness; No Distention Extremities: No Edema Neurological: Alert and Oriented x 3 Result Diagrams: 01/21/18 07:00 01/22/18 05:03 Additional Lab and Data: . Microbiology and Other Data: Microbiology 01/21/18 10:50 Gram Stain - Final Elbow Left 01/20/18 10:57 Aerobic Blood Culture - Preliminary Blood Venous No Growth Day 1 Anaerobic Blood Culture - Preliminary No Growth Day 1 Diagnostic Imaging: . EKG Data: . Assess/Plan/Problems-Billing Assessment: Patient is a 32yo male with a PMH only for HTN who presents with severe cellulitis of his left arm after a fall, who is POD#0 s/p L elbow incision and drainage of L olecranon bursitis - Patient Problems (1) Left arm cellulitis Current Visit: Yes Status: Acute Comment: - Severe, with associated bursitis, felt clinically to have worsening bursitis - OR today for I&D left elbow, comfortable post-op back to [facility] - Continue IV vancomycin per ID recommendation - Await wound cultures (2) Hypertension Current Visit: Yes Status: Acute Comment: - Continue Metoprolol - Hold Lisinopril - Normotensive. (3) Chronic pain Current Visit: Yes Status: Acute Comment: - Controlled with Gabapentin and home opiates. (4) DVT prophylaxis Current Visit: Yes Status: Acute Comment: - Heparin SubQ (5) Full code status Current Visit: Yes Status: Acute Status and Disposition: Inpatient. Anticipate discharge once medically stable.
[2018-01-22] MEDS: Diclofenac Sodium EC TAB* 25 MG PO SCH (21:57)
[2018-01-22] MEDS: Nicotine Patch Removal NOTE FOLLOW UP SCH (22:09)
[2018-01-23] MEDS: Morphine VIAL* 4 MG/ML VIAL (1 ml vial) IV PRN ×3 (00:23→06:12)
[2018-01-23] MEDS: oxyCODONE TAB* 5 MG TAB PO PRN ×2 (03:57→08:40)
[2018-01-23 05:36] LABS: ABS Basophils 0 10^3/ul (0-0.2); ABS Eosinophils 0 10^3/ul (0-0.6); ABS Lymphocytes 0.7 10^3/ul (1.0-4.8); ABS Monocytes 0.6 10^3/ul (0-0.8); ABS Nucleated RBC 0 10^3/ul; Eosinophil % 0.1 % (0-6); Hematocrit 30 % (42-52); Hemoglobin 10.7 g/dl (14.0-18.0); Lymphocyte % 8.6 % (25-47); Mean Corpuscular HGB Conc 35 g/dl (31-36); Mean Corpuscular Hemoglobin 33 pg (27-31); Mean Corpuscular Volume 93 fL (80-94); Nucleated Red Blood Cells % 0.1; Platelet Count 218 10^3/ul (150-450); Red Blood Count 3.27 10^6/ul (4.00-5.40); Red Cell Distribution Width 12 % (10.5-15); White Blood Count 8.5 10^3/ul (3.5-10.8)
[2018-01-23] MEDS: Vancomycin(*) 1,500 MG in NS 0.9% 250 ML* 250 ML IVPB SCH (06:07)
[2018-01-23] MEDS: Diclofenac Sodium EC TAB* 25 MG PO SCH (08:31)
[2018-01-23] MEDS: Multivitamins/Minerals TAB PO SCH (08:31)
[2018-01-23] MEDS: Nicotine PATCH 21 MG/24 HR* PATCH TRANSDERM SCH (08:32)
[2018-01-23] MEDS: Gabapentin CAP(*) 300 MG PO SCH (08:32)
[2018-01-23] MEDS: Heparin VIAL(*) 5000 UNITS/ML VIAL (FIVE THOUSAND) SUBCUT SCH (08:33)
[2018-01-23] MEDS: Folic Acid TAB* 1 MG PO SCH (08:33)
[2018-01-23 08:42] VITALS: BP 110/53
[2018-01-23] MEDS: Thiamine TAB* 100 MG TAB PO SCH (08:57)
--- NOTE | 2018-01-23 09:14 | PN ---
Progress Note - Progress Note Date of Service: 01/23/18 SOAP: Subjective: [Pt. is alert, reports redness is improving but olecranon bursa giving increased pain. Objective: Vital Signs Temp 97.7 F 01/23/18 07:43 Pulse 57 01/23/18 07:43 Resp 18 01/23/18 08:40 BP 110/53 01/23/18 07:43 Pulse Ox 97 01/23/18 07:43 Intake & Output 01/22/18 01/23/18 01/23/18 18:59 06:59 18:59 Intake Total 1090 2150 310 Output Total 700 0 Balance 390 2150 310 Intake: IV Fluids 1000 300 30 ABX - VANCOMYCIN 270 LR 1000 NS 30 30 IVPB 280 NS 280 Oral 90 1850 Output: Urine 700 0 Other: Estimated Void Medium # Voids 1 LUE: Dressing changed and drain pulled. erythema and cellulitis improved both distally and proximally. Incision is c/d/i without purulence. . Elbow range of motion 0-120 when prompted. Distally nvi. 2+ DP pulse Assessment: 32 yo M with LUE cellulitis and infected olecran bursa, S/P washout Plan: DC home today on keflex 500mg qid x 2 weeks Dressing changed today Follow up with Dr. Sarabia on the
--- NOTE | 2018-01-23 12:44 | OP ---
OPERATIVE REPORT: DATE OF OPERATION: 01/22/18 DATE OF : 83 SURGEON: Vi Sarabia MD ANESTHESIOLOGIST: Dr. Kapoor. ANESTHESIA: General. PRE-OP DIAGNOSIS: Left infected olecranon bursitis. POST-OP DIAGNOSIS: Left infected olecranon bursitis. OPERATIVE PROCEDURE: Left open incision and drainage of an infected olecranon bursitis with bursectomy, debridement and wound closure. INDICATIONS: Mr. Catalan is a 32-year-old gentleman, who fell off a bar stool injuring his left elbow on 01/17/18. He presented to my clinic on 01/18/18 with a small scratch over the olecranon bursa and a significant amount of cellulitis and swelling. We placed him on p.o. antibiotics. We had him follow up within 48 hours and on 01/20/18, the patient's cellulitis was worse and not better. We direct admitted him to [facility] and placed him on IV vanco. Over the last 2 days, the patient has improved on the IV vancomycin. His cellulitis is improving, but the olecranon bursitis remains swollen and has started to have some palpable fluctuance. The patient and I discussed an open I and D of this area today and he agreed. He understands the risks of surgery include but are not limited to bleeding, infection, damage to nearby structures, continued pain , need for further surgery, intraoperative complications, stroke, heart attack, blood clot, and . He wishes to proceed. COMPLICATIONS: None. SPECIMENS: Multiple culture swabs were sent for cultures and sensitivities. COMPLICATIONS: None. INTRAOPERATIVE FINDINGS: Intraoperatively, there was approximately 10 cc of purulent fluid in the olecranon bursa and the surrounding region. There was a small amount of devitalized tissue around the olecranon bursa. There was no communication with the elbow joint. DESCRIPTION OF PROCEDURE: Mr. Catalan was identified in the preanesthesia unit. His left upper extremity was marked as the correct operative side. Informed consent was signed and placed in the chart. The patient was taken to the operating room and placed under general anesthesia. A tourniquet was placed on the left upper arm, but was not inflated. Left upper extremity was prepped and draped in the usual sterile fashion. Preop time-out was made to correctly identify the patient's side and site. Appropriate preoperative antibiotics were given within 1 hour of incision. An incision just medial to the olecranon was made of approximately 10 cm. This was made with a 15 blade. Tenotomies were used to dissect carefully through the subcutaneous fat to the olecranon bursa. There was immediate expression of about 10 cc of purulent fluid. Multiple culture swabs were used to collect this purulence. At this time, tenotomies were used to open up the olecranon bursal region. 9 L of sterile saline was used to copiously irrigate this region. Electrocautery was used to obtain meticulous hemostasis. Curette and rongeur were used to remove any necrotic-appearing bursal tissue. The majority of the bursal tissue was excised. There was no additional purulence or infection noted. The muscle was healthy without any necrosis or appearance of infection. There was no communication upon probing with the elbow joint. Interrupted 0 Vicryls were used to close the subcutaneous tissue, interrupted 2- 0 Vicryls were used to close the subcutaneous tissue directly subcuticular region, running 3-0 nylon suture was used to close the incision. A Moore drain was left in place for drainage. The incision was covered with Xeroform, 4x4s, Webril, and an Danny wrap. The patient's anesthesia was reversed without difficulty. He was taken to the PACU in stable condition. Intended weightbearing will be weightbearing as tolerated. Intended DVT prophylaxis will be Lovenox. [id number]/[facility] #: [id number] MTDD
--- NOTE | 2018-01-25 16:22 | DS ---
DISCHARGE SUMMARY: DATE OF ADMISSION: 01/20/18 DATE OF DISCHARGE: 01/23/18 PROVIDER: Dr. Vi Sarabia. ADMITTING DIAGNOSIS: Left elbow cellulitis. CONSULTATIONS: PT/TO, Hospitalist Medicine, and Infectious Disease. HISTORY OF PRESENT ILLNESS: Mr. Catalan is a 32-year-old gentleman who fell off a bar stool injuring his left elbow on 01/17/18. He presented to Dr. Sarabia's clinic on 01/18/18 with small scratch on hi s left olecranon bursa and a significant amount of cellulitis and swelling. He was placed on p.o. an tibiotics and he followed up within 48 hours and on 01/20/18, his cellulitis was worse and not better . We directed direct admit him to [facility] and placed him on IV vanco. HOSPITAL COURSE: The patient was admitted to [facility] on 01/20/18 and was placed on IV antibiotics. An M RI was performed and reviewed. There was no need for washout at this time. No evidence of fluid col lection or septic arthritis at that time of date. IV antibiotics and blood cultures to be followed. On 01/21/18, Infectious Disease saw the patient and recommended continue with IV vancomycin with a g oal trough of 15 to 20. A swab was sent for drainage for communication with the olecranon bursa. On 01/22/18, the plan was to take the patient for an I and D. In the OR, the patient underwent a left open incision and drainage of the infected olecranon bursitis with bursectomy and debridement and wou nd closure. He recovered in the PACU and was transferred to the short-stay surgical unit in stable c ondition. Postop day #1, the patient was switched to Keflex 500 mg 4 times a day x2 weeks. Dressing was changed. Erythema was much improved and the patient would follow up with Dr. Sarabia on 01/27/18. He is stable for discharge. DISCHARGE CONDITION: Good. DISCHARGE MEDICATIONS: 1. Aspirin 325 once a day x14 days. 2. Percocet 5/325 take 1 or 2 tabs by mouth every 4 to 6 hours as needed for pain. 3. Keflex 500 mg 4 times a day x2 weeks. HOME MEDICATIONS: 1. Zolpidem 10 mg. 2. Diazepam 10 mg. 3. Gabapentin 300 mg. 4. Glycopyrrolate 1 mg. 5. Lisinopril 10 mg. 6. Metoprolol 100 mg. DISCHARGE INSTRUCTIONS: 1. Weightbearing as tolerated. Okay to shower on postop day #3. No bathing, swimming or submerging the wound. Use gentle soap and pat dry. Cover with gauze, Danny wrap, and tape. Call orthopedic off ice for increased drainage, redness, increased pain or fever. Go to the ER with shortness of breath or chest pain. 3. Diet: Regular diet. Increase fluids and fiber to prevent constipation. Continue to use stool so fteners. Call office if no bowel motion within 48 hours. 4. Aspirin 325 mg once a day x14 days. 5. Pain control with Percocet 5/325 mg, take 1 tab every 4 to 6 hours as needed for pain. Maximum o f 10 tabs per day. Please note that Percocet contains Tylenol, maximum daily dose of Tylenol is 4 g from all sources. 6. Keflex 500 mg 4 times a day for 2 weeks. 7. Follow up with Dr. Sarabia on 01/27/18. AVA QUINTANILLA [id number]/[facility] #: [id number]
== END 2018-01-23 12:30 | disposition home or self-care (01) | DRG 317 ==
LOC: SSU 10:14 → OBSVTOIN 10:23 → INTOOBSV 10:23
PROVIDERS: ADMIT Orthopaedic Surgery Adult Reconstructive Orthopaedic Surgery; ATTEND Orthopaedic Surgery Adult Reconstructive Orthopaedic Surgery
PROC: 0MB40ZZ Excision of Left Elbow Bursa and Ligament, Open Approach (ICD-10-PCS; principal; 2018-01-22 16:45)
DX: M70.22 Olecranon bursitis, left elbow (principal); L03.114 Cellulitis of left upper limb; M60.032 Infective myositis, left forearm; K52.1 Toxic gastroenteritis and colitis; I10 Essential (primary) hypertension; M19.90 Unspecified osteoarthritis, unspecified site; M10.9 Gout, unspecified; G47.00 Insomnia, unspecified; E66.01 Morbid (severe) obesity due to excess calories; F43.10 Post-traumatic stress disorder, unspecified; F41.0 Panic disorder [episodic paroxysmal anxiety]; F32.9 Major depressive disorder, single episode, unspecified; F17.210 Nicotine dependence, cigarettes, uncomplicated; W07.XXXA Fall from chair, initial encounter; T36.0X5A Adverse effect of penicillins, initial encounter; Y92.239 Unspecified place in hospital as the place of occurrence of the external cause; G89.29 Other chronic pain; Z96.652 Presence of left artificial knee joint; Z96.642 Presence of left artificial hip joint; D64.9 Anemia, unspecified; Z68.36 Body mass index [BMI] 36.0-36.9, adult; Z87.01 Personal history of pneumonia (recurrent); Z82.49 Family history of ischemic heart disease and other diseases of the circulatory system; Z83.3 Family history of diabetes mellitus; Z80.9 Family history of malignant neoplasm, unspecified; Z72.89 Other problems related to lifestyle; Y92.9 Unspecified place or not applicable; Z82.61 Family history of arthritis
CPT/HCPCS: 36415; 71045; 80048; 80053; 80202; 82565; 84520; 85025; 85610; 85652; 85730; 86140; 86703; 87040; 87070; 87073; 87077; 87186; 87205; 87640; 87641; 93005; A9270-GY; J0690; J1100; J1170; J1644; J1885; J2250; J2270; J2405; J2543; J2704; J3010; J3370

== ENCOUNTER 2021-05-28 10:30 | Observation (INO) ==
[~2021-05-28 10:30] MED LIST: Buffered Lidocaine 1% SYRIN 1 ml INTRADERM ONE; Lactated Ringers 1000 ml BAG 1,000 ML IV SCH
[2021-05-28] MEDS ORDERED: ceFAZolin 2 GM in NS PREMIX 2 GM/100 ML BAG IVPB ONE (11:01)
[2021-05-28] MEDS ORDERED: ceFAZolin 1 GM ADVAN 1 GM ADDV.VIAL IVPB ONE (11:01)
[2021-05-28] MEDS ORDERED: Dexamethasone IV 4 MG/ML VIAL 1 ml VIAL ONE (11:49)
[2021-05-28] MEDS ORDERED: fentaNYL 250 mcg/5 ml 50 MCG/ML 5 ml VIAL (250 MCG) ONE (11:49)
[2021-05-28] MEDS ORDERED: HYDROmorphone 0.5 MG/0.5 ML SYRINGE ONE (11:49)
[2021-05-28] MEDS ORDERED: Ondansetron 4 mg VIAL 2 MG/ML 2 ml VIAL ONE (11:49)
[2021-05-28] MEDS ORDERED: Sugammadex 500 MG/5 ML 5 ml VIAL IV PUSH ONE (11:49)
[2021-05-28] MEDS ORDERED: Lidocaine 2% PF 5 ML VIAL ONE (11:49)
[2021-05-28] MEDS ORDERED: Rocuronium 50 mg VIAL 10 mg/ml 5 ml VIAL (50 mg) ONE ×3 (11:49→15:02)
[2021-05-28] MEDS ORDERED: Midazolam 2 mg/2 ml VIAL 1 mg/ml 2 ml VIAL (2 mg) ONE (11:49)
[2021-05-28] MEDS ORDERED: ROPIVACAINE 5 MG/ML 30 ML BTL (0.5%) ONE (13:25)
[2021-05-28] MEDS ORDERED: Propofol 10 MG/ML 20 ML BTL ONE (13:27)
[2021-05-28] MEDS ORDERED: Naloxone 0.4 mg VIAL 0.4 mg/ml 1 ml VIAL IV PRN (13:43)
[2021-05-28] MEDS ORDERED: Prochlorperazine 5 mg/ml 2 ml VIAL (10 mg) IV PRN (13:43)
[2021-05-28] MEDS ORDERED: diPHENhydraMINE IV 50 MG/ML 1 ml VIAL (BENADRYL) IV PRN ×2 (13:43→14:32)
[2021-05-28] MEDS ORDERED: Phenylephrine 40 mcg/mL 10mL (400mcg) SYRINGE ONE ×2 (13:52→15:40)
[2021-05-28] MEDS ORDERED: Acetaminophen IV 1 GM/100ML 100 ML IV ONE (13:55)
[2021-05-28] MEDS ORDERED: EPHEDrine (Pressors) 50 MG/ML VIAL ONE (14:00)
[2021-05-28] MEDS ORDERED: Magnesium Hydroxide LIQ 30 ML UDC PO PRN (14:32)
[2021-05-28] MEDS ORDERED: Ondansetron ODT 4 mg TAB 4 MG TAB PO PRN (14:32)
[2021-05-28] MEDS ORDERED: diPHENhydraMINE 25 mg TAB PO PRN (14:32)
[2021-05-28] MEDS ORDERED: Ondansetron 4 mg VIAL 2 MG/ML 2 ml VIAL IV PRN (14:32)
[2021-05-28] MEDS ORDERED: Lactulose 30 ml UDC PO PRN (14:32)
[2021-05-28] MEDS ORDERED: Lactated Ringers 1000 ml BAG 1,000 ML IV SCH (15:00)
[2021-05-28] MEDS ORDERED: HYDROmorphone 1 MG/1 ML SYRINGE ONE (16:55)
[2021-05-28] MEDS: HYDROmorphone 1 MG/1 ML SYRINGE IV PRN ×5 (17:00→17:20)
[2021-05-28] MEDS ORDERED: fentaNYL 100 mcg/2 ml 50 MCG/ML VIAL ONE (17:09)
[2021-05-28] MEDS ORDERED: Nicotine GUM 4MG FRUIT FLAVOR PO PRN (20:09)
[2021-05-28] MEDS: Nicotine PATCH 21 MG/24 HR PATCH TRANSDERM SCH (20:41)
[2021-05-28] MEDS: Magnesium Hydroxide LIQ 30 ML UDC PO SCH (20:41)
[2021-05-28] MEDS: ceFAZolin 1 GM ADVAN 1 GM in NS 0.9% 50 ML 50 ML IVPB SCH (22:36)
[2021-05-29] MEDS: ceFAZolin 1 GM ADVAN 1 GM in NS 0.9% 50 ML 50 ML IVPB SCH ×2 (05:40→14:02)
[2021-05-29 07:02] LABS: Hematocrit 33 % (42-52); Hemoglobin 11.9 g/dL (14.0-18.0); Mean Platelet Volume 9.4 fL (7.4-10.4); Platelet Count 134 10^3/uL (150-450)
[2021-05-29 07:12] LABS: Potassium 3.8 mmol/L (3.5-5.0)
[2021-05-29] MEDS ORDERED: fentaNYL PATCH 25 MCG/HR 1 PATCH ONE (07:34)
[2021-05-29] MEDS: Nicotine PATCH 21 MG/24 HR PATCH TRANSDERM SCH (07:37)
[2021-05-29 07:40] LABS: Calcium 8.6 mg/dL (8.6-10.3); eGFR CKD-EPI 104.4 (>60)
[2021-05-29] MEDS ORDERED: Nicotine PATCH 21 MG/24 HR PATCH TRANSDERM SCH (08:00)
[2021-05-29] MEDS: Magnesium Hydroxide LIQ 30 ML UDC PO SCH (08:35)
[2021-05-29] MEDS ORDERED: Metoprolol Succinate XL 200 mg TAB PO SCH (09:00)
[2021-05-29] MEDS ORDERED: fentaNYL Patch Check Q Shift NOTE FOLLOW UP SCH (09:00)
[2021-05-29] MEDS ORDERED: Vitamin THERAPEUTIC TAB PO SCH (09:00)
[2021-05-29 11:19] VITALS: BP 150/79
[2021-05-30] MEDS ORDERED: fentaNYL PATCH 25 MCG/HR 1 PATCH TRANSDERM SCH (08:00)
== END 2021-05-29 15:17 | disposition home or self-care (01) ==
LOC: OR 10:30 → SSU 10:30
PROVIDERS: ADMIT Orthopaedic Surgery Adult Reconstructive Orthopaedic Surgery; ATTEND Orthopaedic Surgery Adult Reconstructive Orthopaedic Surgery

== ENCOUNTER 2024-03-07 10:43 | Observation (INO) ==
[2024-03-07] MEDS: Buffered Lidocaine 1% SYRIN 1 ml INTRADERM ONE (08:43)
[2024-03-07] MEDS: Lactated Ringers 1000 ml BAG 1,000 ML IV SCH ×2 (09:17→15:15)
[2024-03-07] MEDS: Scopolamine 1 mg/72hr PATCH TRANSDERM ONE (09:17)
[~2024-03-07 10:43] MED LIST changes: +Acetaminophen IV 1 GM/100ML 1,000 MG/100 ML BAG IV ONE; +Chlorhexidine MOUTHWASH 0.12% 15 ML UDC ONE; +Dexamethasone IV 4 MG/ML VIAL 1 ml VIAL ONE; +Lidocaine 2% PF 5 ML VIAL ONE; +Metoclopramide 5 MG/ML VIAL (10 mg) IV PRN; +Midazolam 2 mg/2 ml VIAL 1 mg/ml 2 ml VIAL (2 mg) ONE; +NS 0.45% 1000 ml BAG 1,000 ML IV SCH; +Naloxone 0.4 mg VIAL 0.4 mg/ml 1 ml VIAL IV PRN; +Ondansetron 4 mg VIAL 2 MG/ML 2 ml VIAL IV PRN; +Ondansetron 4 mg VIAL 2 MG/ML 2 ml VIAL ONE; +Propofol 10 mg/ml 100 ML BTL 1,000 MG/100 ML BTL ONE; +Rocuronium 50 mg VIAL 10 mg/ml 5 ml VIAL (50 mg) ONE; +ceFAZolin 1 GM in Dextrose 1 GM/50 ML BAG ONE; +ceFAZolin 2 GM PREMIX 2 GM/50 ML BAG ONE; +fentaNYL 100 mcg/2 ml 50 MCG/ML VIAL IV PRN; +fentaNYL 100 mcg/2 ml 50 MCG/ML VIAL ONE
[2024-03-07] MEDS ORDERED: fentaNYL 100 mcg/2 ml 50 MCG/ML VIAL ONE ×2 (10:53→13:18)
[2024-03-07] MEDS ORDERED: Dexamethasone IV 4 MG/ML VIAL 1 ml VIAL ONE (11:09)
[2024-03-07] MEDS ORDERED: Rocuronium 50 mg VIAL 10 mg/ml 5 ml VIAL (50 mg) ONE (11:30)
[2024-03-07] MEDS ORDERED: HYDROmorphone 0.5 MG/0.5 ML SYRINGE ONE (11:35)
[2024-03-07] MEDS ORDERED: Thrombin 5,000 UNITS(BOVINE) for Ultrasound Guided Pseudoaneursym ONE (12:10)
[2024-03-07] MEDS: fentaNYL 100 mcg/2 ml 50 MCG/ML VIAL IV PRN (13:19)
[2024-03-07] MEDS ORDERED: Senna TAB 8.6 mg TAB PO PRN (13:20)
[2024-03-07] MEDS ORDERED: Phenol 1.4% Throat Spray BTL MT PRN (13:20)
[2024-03-07] MEDS ORDERED: Calcium Carb (TUMS) 500 mg CHEW TAB PO PRN (13:20)
[2024-03-07] MEDS ORDERED: Dextran 70/Hypromellose Tears Eye Drops 15 ml BTL (for Artificials Tears) BOTH EYES PRN (13:20)
[2024-03-07] MEDS: Morphine 2 MG/ML SYRINGE IV PRN (15:20)
[2024-03-08] MEDS: HYDROmorphone 1 MG/1 ML SYRINGE IV PRN (00:27)
[2024-03-08] MEDS: Benzocaine/Menthol LOZ MT PRN (03:31)
[2024-03-08] MEDS: Diclofenac Sod EC 25 mg TAB PO SCH (10:53)
[2024-03-08] MEDS ORDERED: oxyCODONE SR 20 mg TAB PO ONE (13:36)
[2024-03-08] MEDS: oxyCODONE SR 10 mg TAB PO ONE (14:01)
[2024-03-08] MEDS ORDERED: Naloxone Nasal Spray 4 MG/0.1 ML NASAL.SPR INTRANASAL PRN (20:26)
[2024-03-08] MEDS ORDERED: oxyCODONE SR 20 mg TAB PO SCH (21:00)
[2024-03-08] MEDS: oxyCODONE SR 10 mg TAB PO SCH (21:03)
[2024-03-08] MEDS ORDERED: Senna TAB 8.6 mg TAB PO PRN (23:02)
[2024-03-08] MEDS ORDERED: Magnesium Hydroxide LIQ 30 ML UDC PO PRN (23:02)
[2024-03-09 09:23] VITALS: BP 115/69
== END 2024-03-09 13:35 | disposition home or self-care (01) ==
LOC: OR 10:43 → SSU 10:43
PROVIDERS: ADMIT Neurological Surgery; ATTEND Neurological Surgery